=== PATIENT | female | born 1970 | race Two or more races ===

== ENCOUNTER → 2021-11-05 07:57 | Outpatient (BNVA) | payer OTHER, SELFPAY | PROVIDERS: PCP Internal Medicine; Visit Provider Internal Medicine Rheumatology | DX: Z13.89 Encounter for screening for other disorder (principal) ==

== ENCOUNTER 2021-11-06 08:27 | Outpatient (REF) | payer OTHER, SELFPAY ==
[2021-11-06 08:45] LABS: MANUAL DIFF FLAG NO
[2021-11-06 09:42] LABS: Basophils Percent Auto 0.7 % (0-2); Eosinophils Absolute Auto 0.1 X10*3/uL (0.0-0.4); Eosinophils Percent Auto 3.1 % (0-4); Hemoglobin 12.1 g/dl (12.0-16.0); Imm Gran Abs Auto 0.01 X10*3/uL (0.00-0.03); Imm Gran Pct Auto 0.2 % (0.0-0.4); Lymphocytes Absolute Auto 1.2 X10*3/uL (1.2-4.9); Lymphocytes Percent Auto 27.1 % (20-40); Mean Corpuscular HGB Conc 31.8 g/dl (31.0-35.0); Mean Corpuscular Hemoglobin 29.2 pg (27.0-33.0); Mean Corpuscular Volume 91.6 fL (80.0-98.0); Mean Platelet Volume 10.7 fL (9.4-12.3); Monocytes Absolute Auto 0.4 X10*3/uL (0.1-1.2); Monocytes Percent Auto 8.1 % (2-11); Neutrophils Absolute Auto 2.8 x10*3/uL (2.0-8.3); Neutrophils Percent Auto 60.8 % (45-73); Platelet Count 348 X10*3/uL (160-400); Red Blood Count 4.15 X10*6/uL (4.20-5.50); Red Cell Distribution Width 14.6 % (11.0-16.0); White Blood Count 4.6 X10*3/uL (4.8-10.8)
[2021-11-06 10:19] LABS: Alanine Aminotransferase 29 U/L (0-31); Aspartate Amino Transferase 19 U/L (5-31); C Reactive Protein 1.21 mg/dL (< or = 0.50); Estimated Glomerular Filt Rate > 60
[2021-11-06 10:36] LABS: Erythrocyte Sedimentation Rate 49 MM/HR (0-20)
[2021-11-10 14:17] LABS: Vitamin D 25-OH, D2 28 ng/mL; Vitamin D 25-OH, D3 5 ng/mL; Vitamin D 25-OH, Total 33 ng/mL (30-100)
== END 2021-11-06 08:28 | disposition home or self-care (01) ==
LOC: HO.LAB 08:27
PROVIDERS: PCP Internal Medicine; Visit Provider Internal Medicine Rheumatology
DX: E55.9 Vitamin D deficiency, unspecified (principal); M05.9 Rheumatoid arthritis with rheumatoid factor, unspecified; Z79.899 Other long term (current) drug therapy
CPT/HCPCS: 36415; 82306; 82565; 84450; 84460; 85025; 85652; 86140

== ENCOUNTER 2022-01-05 09:14 | Outpatient (REF) | payer OTHER, SELFPAY ==
[2022-01-05 09:43] LABS: MANUAL DIFF FLAG NO
[2022-01-05 09:50] LABS: Basophils Percent Auto 0.1 % (0-2); Eosinophils Absolute Auto 0.1 X10*3/uL (0.0-0.4); Eosinophils Percent Auto 1.1 % (0-4); Hemoglobin 12.4 g/dl (12.0-16.0); Imm Gran Abs Auto 0.03 X10*3/uL (0.00-0.03); Imm Gran Pct Auto 0.4 % (0.0-0.4); Lymphocytes Absolute Auto 1.4 X10*3/uL (1.2-4.9); Lymphocytes Percent Auto 17.2 % (20-40); Mean Corpuscular HGB Conc 32.6 g/dl (31.0-35.0); Mean Corpuscular Hemoglobin 29.2 pg (27.0-33.0); Mean Corpuscular Volume 89.4 fL (80.0-98.0); Mean Platelet Volume 10.1 fL (9.4-12.3); Monocytes Absolute Auto 0.3 X10*3/uL (0.1-1.2); Monocytes Percent Auto 4.1 % (2-11); Neutrophils Absolute Auto 6.3 x10*3/uL (2.0-8.3); Neutrophils Percent Auto 77.1 % (45-73); Platelet Count 273 X10*3/uL (160-400); Red Blood Count 4.25 X10*6/uL (4.20-5.50); Red Cell Distribution Width 13.5 % (11.0-16.0); White Blood Count 8.1 X10*3/uL (4.8-10.8)
[2022-01-05 10:15] LABS: Alanine Aminotransferase 21 U/L (0-31); Aspartate Amino Transferase 14 U/L (5-31); C Reactive Protein 2.22 mg/dL (< or = 0.50); Estimated Glomerular Filt Rate > 60
[2022-01-05 10:29] LABS: Erythrocyte Sedimentation Rate 50 MM/HR (0-20)
== END 2022-01-05 09:15 | disposition home or self-care (01) ==
LOC: HO.LAB 09:14
PROVIDERS: PCP Internal Medicine; Visit Provider Internal Medicine Rheumatology
DX: M05.9 Rheumatoid arthritis with rheumatoid factor, unspecified (principal); Z79.899 Other long term (current) drug therapy
CPT/HCPCS: 36415; 82565; 84450; 84460; 85025; 85652; 86140

== ENCOUNTER 2022-06-05 08:57 | Outpatient (REF) | payer OTHER, SELFPAY ==
[2022-06-05 09:07] LABS: MANUAL DIFF FLAG NO
[2022-06-05 09:29] LABS: Basophils Percent Auto 0.4 % (0-2); Eosinophils Absolute Auto 0.1 X10*3/uL (0.0-0.4); Eosinophils Percent Auto 1.6 % (0-4); Hematocrit 41.1 % (37.0-47.0); Hemoglobin 13.2 g/dl (12.0-16.0); Imm Gran Abs Auto 0.03 X10*3/uL (0.00-0.03); Imm Gran Pct Auto 0.4 % (0.0-0.4); Lymphocytes Absolute Auto 1.4 X10*3/uL (1.2-4.9); Lymphocytes Percent Auto 17.2 % (20-40); Mean Corpuscular HGB Conc 32.1 g/dl (31.0-35.0); Mean Corpuscular Hemoglobin 29.4 pg (27.0-33.0); Mean Corpuscular Volume 91.5 fL (80.0-98.0); Mean Platelet Volume 10.9 fL (9.4-12.3); Monocytes Absolute Auto 0.5 X10*3/uL (0.1-1.2); Monocytes Percent Auto 5.9 % (2-11); Neutrophils Absolute Auto 5.9 x10*3/uL (2.0-8.3); Neutrophils Percent Auto 74.5 % (45-73); Platelet Count 267 X10*3/uL (160-400); Red Blood Count 4.49 X10*6/uL (4.20-5.50); Red Cell Distribution Width 14.1 % (11.0-16.0)
[2022-06-05 10:04] LABS: Alanine Aminotransferase 23 U/L (0-31); Aspartate Amino Transferase 17 U/L (5-31); C Reactive Protein 2.96 mg/dL (< or = 0.50); Estimated Glomerular Filt Rate > 60
[2022-06-05 10:05] LABS: Erythrocyte Sedimentation Rate 51 MM/HR (0-20)
== END 2022-06-05 08:58 | disposition home or self-care (01) ==
LOC: HO.LAB 08:57
PROVIDERS: PCP Internal Medicine; Visit Provider Internal Medicine Rheumatology
DX: M05.9 Rheumatoid arthritis with rheumatoid factor, unspecified (principal); Z79.899 Other long term (current) drug therapy
CPT/HCPCS: 36415; 82565; 84450; 84460; 85025; 85652; 86140

== ENCOUNTER → 2022-06-24 08:46 | Outpatient (BNVA) | payer OTHER, SELFPAY | PROVIDERS: PCP Internal Medicine; Visit Provider Internal Medicine Rheumatology | DX: M05.9 Rheumatoid arthritis with rheumatoid factor, unspecified (principal); Z79.899 Other long term (current) drug therapy ==

== ENCOUNTER 2022-08-26 15:50 | Outpatient (REF) | payer OTHER, SELFPAY ==
[2022-08-26 16:07] LABS: MANUAL DIFF FLAG NO
[2022-08-26 17:24] LABS: Basophils Percent Auto 0.2 % (0-2); Eosinophils Absolute Auto 0.1 X10*3/uL (0.0-0.4); Eosinophils Percent Auto 1.4 % (0-4); Hematocrit 39.4 % (37.0-47.0); Hemoglobin 13.1 g/dl (12.0-16.0); Imm Gran Abs Auto 0.01 X10*3/uL (0.00-0.03); Imm Gran Pct Auto 0.2 % (0.0-0.4); Lymphocytes Absolute Auto 1.8 X10*3/uL (1.2-4.9); Lymphocytes Percent Auto 42.4 % (20-40); Mean Corpuscular HGB Conc 33.2 g/dl (31.0-35.0); Mean Corpuscular Hemoglobin 29.8 pg (27.0-33.0); Mean Corpuscular Volume 89.7 fL (80.0-98.0); Monocytes Absolute Auto 0.5 X10*3/uL (0.1-1.2); Monocytes Percent Auto 11.3 % (2-11); Neutrophils Absolute Auto 1.8 x10*3/uL (2.0-8.3); Neutrophils Percent Auto 44.5 % (45-73); Platelet Count 211 X10*3/uL (160-400); Red Blood Count 4.39 X10*6/uL (4.20-5.50); Red Cell Distribution Width 14.5 % (11.0-16.0); White Blood Count 4.2 X10*3/uL (4.8-10.8)
[2022-08-26 17:57] LABS: Alanine Aminotransferase 64 U/L (0-31); Aspartate Amino Transferase 41 U/L (5-31); C Reactive Protein 0.73 mg/dL (< or = 0.50); Estimated Glomerular Filt Rate > 60
[2022-08-26 18:04] LABS: Erythrocyte Sedimentation Rate 25 MM/HR (0-20)
== END 2022-08-26 15:51 | disposition home or self-care (01) ==
LOC: HO.LAB 15:50
PROVIDERS: PCP Internal Medicine Rheumatology; Visit Provider Internal Medicine Rheumatology
DX: M05.9 Rheumatoid arthritis with rheumatoid factor, unspecified (principal); Z79.899 Other long term (current) drug therapy
CPT/HCPCS: 36415; 82565; 84450; 84460; 85025; 85652; 86140

== ENCOUNTER → 2022-08-27 11:26 | Outpatient (BNVA) | payer OTHER, SELFPAY | PROVIDERS: PCP Internal Medicine; Visit Provider Internal Medicine Rheumatology | DX: Z13.89 Encounter for screening for other disorder (principal) ==

== ENCOUNTER 2022-09-29 12:31 | Outpatient (REF) | payer OTHER, SELFPAY ==
[2022-09-29 14:07] LABS: Alanine Aminotransferase 45 U/L (0-31); Alkaline Phosphatase 85 U/L (39-117); Aspartate Amino Transferase 28 U/L (5-31); Bilirubin Direct 0.2 mg/dL (0.0-0.5); Bilirubin Total 0.6 mg/dL (0.0-1.0); Total Protein 7.1 g/dL (6.5-8.0)
== END 2022-09-29 12:32 | disposition home or self-care (01) ==
LOC: HO.LAB 12:31
PROVIDERS: PCP Physician Assistant; Visit Provider Internal Medicine Rheumatology
DX: Z79.899 Other long term (current) drug therapy (principal)
CPT/HCPCS: 36415; 80076

== ENCOUNTER 2023-01-18 07:23 | Outpatient (REF) | payer OTHER, SELFPAY ==
[2023-01-18 07:56] LABS: MANUAL DIFF FLAG NO
[2023-01-18 08:24] LABS: Basophils Percent Auto 0.2 % (0-2); Eosinophils Absolute Auto 0.1 X10*3/uL (0.0-0.4); Eosinophils Percent Auto 2.7 % (0-4); Hematocrit 38.8 % (37.0-47.0); Hemoglobin 12.6 g/dl (12.0-16.0); Imm Gran Abs Auto 0.02 X10*3/uL (0.00-0.03); Imm Gran Pct Auto 0.4 % (0.0-0.4); Lymphocytes Absolute Auto 1.6 X10*3/uL (1.2-4.9); Lymphocytes Percent Auto 32.4 % (20-40); Mean Corpuscular HGB Conc 32.5 g/dl (31.0-35.0); Mean Corpuscular Volume 92.4 fL (80.0-98.0); Mean Platelet Volume 11.3 fL (9.4-12.3); Monocytes Absolute Auto 0.4 X10*3/uL (0.1-1.2); Monocytes Percent Auto 8.5 % (2-11); Neutrophils Absolute Auto 2.7 x10*3/uL (2.0-8.3); Neutrophils Percent Auto 55.8 % (45-73); Platelet Count 204 X10*3/uL (160-400); Red Cell Distribution Width 13.5 % (11.0-16.0); White Blood Count 4.9 X10*3/uL (4.8-10.8)
[2023-01-18 08:46] LABS: Alanine Aminotransferase 47 U/L (0-31); Aspartate Amino Transferase 24 U/L (5-31); C Reactive Protein 0.53 mg/dL (< or = 0.50); Estimated Glomerular Filt Rate > 60
[2023-01-18 09:10] LABS: Erythrocyte Sedimentation Rate 28 MM/HR (0-20)
== END 2023-01-18 07:24 | disposition home or self-care (01) ==
LOC: HO.LAB 07:23
PROVIDERS: PCP Physician Assistant; Visit Provider Internal Medicine Rheumatology
DX: R74.01 Elevation of levels of liver transaminase levels (principal); M54.50 Low back pain, unspecified; M05.9 Rheumatoid arthritis with rheumatoid factor, unspecified; Z79.899 Other long term (current) drug therapy
CPT/HCPCS: 36415; 82565; 84450; 84460; 85025; 85652; 86140

== ENCOUNTER 2023-01-18 08:03 | Outpatient (AMB) | payer OTHER, SELFPAY ==
--- NOTE | 2023-01-18 08:04 | A.OFFVIS_ITS ---
Intake Vital Signs 01/18/23 08:07 Height 5 ft 6 in Weight 216 lb 0.848 oz BMI 34.9 BP 126/88 Blood Pressure Location Lt brachial Position Sitting Pulse 77 Pulse Source Pulse Oximeter Temp 97.7 F Temp Source Skin Pulse Oximetry (%) 99 Oxygen Delivery Method Room Air Intake Visit Reasons: Rheumatoid Arthritis Intake Note: Here for RA follow up and test results. Labs done today. Development Technical Lead Required: No Allergies No Known Allergies Allergy (Unverified 01/18/23 08:04) HPI HPI Comments History of Present Illness Details The patient returns today for evaluation of her rheumatoid arthritis. In general the joints are feeling much better now that she is regularly receiving the Humira 40 mg every 2 weeks and taking the methotrexate 20 mg weekly. She also is on folic acid 1 mg daily and takes occasional ibuprofen. The use of the ibuprofen has been minimal recently although she developed some back pain last week. She has been trying to lose weight through dietary restriction and that has been helpful. She has also been walking at least 3 times a week. After for a long walk sometimes she gets a back ache so she takes the ibuprofen. Back pains do not seem to radiate anywhere. She has no numbness, weakness or tingling in the legs. She is back on regularly using the CPAP device as well. FORMERLY [facility], [facility]–1983 Medical History History of COVID-19 Hypertension Long-term use of immunosuppressant medication Malignant neoplasm cervix Obstructive sleep apnea Seropositive rheumatoid arthritis Thyroid nodule Vitamin D deficiency Surgical History History of laparoscopic appendectomy Family History Mother Rheumatoid arthritis Social History Household Members: Significant Other Housing: House Are you a primary landcare officer to a significant other at home: No Do you presently have visiting nurse or other home services: No 75 years or older and lives alone: No Alcohol intake: current Alcohol intake frequency: holidays/special occasions only Alcohol type: wine Patient Tobacco Use Status: Never used Tobacco e-Cigarette/Vaping Use: Never Used service: No Current occupational status: employed 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 Negative for appetite change, fever, chills, malaise and fatigue Eyes Details: Negative for vision change, dry eyes,headaches and dizziness ENT Details: Negative for hearing change, tinnitus, oral ulcer, nose bleeds and oral dryness. Card Details: Negative chest pain, edema and syncope Resp Details: Negative for SOB, cough and wheezing GI Details: Negative indigestion/heartburn, nausea, abdominal pain, bowel changes, diarrhea, constipation and bloody stool. Skin/Breast Details: Negative for itching, rash, hives, Raynaud's symptoms, sun sensitivity, and skin cancer Neuro Details: Negative for epilepsy, palsy, stroke, changes in speech, tingling and weakness Chandler/Lymph Details: Negative for excessive bruising or bleeding. Physical Exam Vital Signs: Last Vital Signs Temp 97.7 F 01/18/23 08:07 Pulse 77 01/18/23 08:07 BP 126/88 01/18/23 08:07 Pulse Ox 99 01/18/23 08:07 Oxygen Delivery Method Room Air 01/18/23 08:07 BMI result Body Mass Index 34.9 APPEARANCE: Patient in no acute distress EYES no redness, pupils equal and reactive to light, eyelids normal EXTREMITIES: No edema, no calf tenderness, normal peripheral pulses. NEURO: Oriented and alert x3. No focal weakness. Reflexes symmetric. Gait normal. JOINT EXAM: ?? Cervical Spine:.? Full range of motion without pain; no tenderness. Thoracic Spine:.? No scoliosis.? No tenderness on palpation. Lumbar Spine:.? Alignment normal.? Full range of motion with slight pain at the extremes. No tenderness. Chest Wall:.? No tenderness, swelling, increased warmth or erythema. Hands:? Right:? There is mild swelling of the 1st 3 MCP joints; these joints today are not tender.? There is slight thickening?at the 2nd and 3rd PIP joints but they are not tender today.? There is no thenar atrophy, triggering or sensory loss.? Left:? There is mild, nontender swelling of the 2nd and 3rd MCP joints.? There is no swelling or tenderness of the PIP joints.? There is no flexor tendon triggering, thenar atrophy or sensory loss. Wrists:.? Right:? No discomfort with flexion or extension at 60 degrees. No tenderness or swelling.? Left:? No discomfort with flexion or extension at 75 degrees.? There is no swelling or tenderness. No redness or warmth. Elbows:? Right:?? This is a 1 cm in diameter, non fluctuant nodule over the olecranon which has the consistency of a rheumatoid nodule.? Otherwise the joint has pain-free range of motion without tenderness or swelling.? Left:? Normal pain-free range of motion without tenderness, swelling, increased warmth or erythema.? There is however some nodularity to the olecranon bursa, also consistent with some rheumatoid nodules.? No fluctuance or tenderness.? No redness or warmth. Shoulders:.?? Full range of motion without pain. No tenderness, weakness, swelling, increased warmth or erythema. Hips:.? Full range of motion without pain. Hip bursa:.? No tenderness. Knees:.?? Normal pain-free range of motion without tenderness, swelling, increa sed warmth or erythema.? There is no effusion or crepitation Ankles:? Right:? Normal pain-free range of motion with no tenderness, swelling, increased warmth or erythema.? Left:? Normal pain-free range of motion without tenderness or swelling. Feet:.? Right:? There is mild tenderness at the 1st MTP joint and maybe some swelling.? Elsewhere no tenderness or swelling.? Left:? Slight tenderness at the 1st MTP without swelling, redness or warmth.? Other joints have normal pain-free range of motion without tenderness, swelling, increased warmth or erythema. ? Results Reviewed Results Reviewed: Laboratory Tests 08/26/22 08/26/22 08/26/22 16:05 16:05 16:05 WBC 4.2 L Hgb 13.1 ESR 25 H AST 41 H ALT 64 H C-Reactive Protein 0.73 H 09/29/22 12:38 WBC Hgb ESR AST 28 ALT 45 H C-Reactive Protein Assessment & Plan Assessment & Plan (1) Long-term use of immunosuppressant medication: Code(s): Z79.899 - Other jail (current) drug therapy (2) Elevated transaminase level: Code(s): R74.01 - Elevation of levels of liver transaminase levels (3) Low back pain: Code(s): M54.50 - Low back pain, unspecified (4) Seropositive rheumatoid arthritis: Comment: Onset 03/18: RF, TRINO positive, anti DNA negative. Methotrexate started 08/17; Enbrel added late October Enbrel loosing effectiveness; Humira started Code(s): M05.9 - Rheumatoid arthritis with rheumatoid factor, unspecified Plan Rheumatoid arthritis with improvement in control of her symptoms with more regular use of the Humira. Recently, she has not had the great difficulty obtaining it regularly from her supplier. She had some elevation of transaminases back in August. Those improved in September so we await today's lab work. Hopefully with the reduction in weight she will have avoided the fatty liver situation with her liver. The back pain seems mechanical in etiology. We will set up some physical therapy time for that. She will continue as above unless we need to change the methotrexate dose because of her LFTs. A follow-up is recommended for 4 months but lab work will be needed probably in another 2 months. Orders: Orders PT Evaluation and Treatment Today M54.50 - Low back pain, unspecified Coding Level of Care Code Est Pt Level 3 (21278) Diagnoses Long-term use of immunosuppressant medication Z79.899 Elevated transaminase level R74.01 Low back pain M54.50 Seropositive rheumatoid arthritis M05.9
[2023-01-18 08:07] VITALS: BP 126/88; PULSE 77; TEMP 36.5; O2SAT 99; BMI 34.9
== END 2023-01-18 08:31 | disposition home or self-care (01) ==
PROVIDERS: PCP Physician Assistant; Visit Provider Internal Medicine Rheumatology
DX: M05.89 Other rheumatoid arthritis with rheumatoid factor of multiple sites (principal); Z79.899 Other long term (current) drug therapy; R74.01 Elevation of levels of liver transaminase levels; M54.50 Low back pain, unspecified
CPT/HCPCS: 99213

== ENCOUNTER 2023-02-10 08:04 | Outpatient (REF) | payer OTHER, SELFPAY ==
--- NOTE | ~2023-02-10 | XR_ITS ---
EXAMINATION: XR LUMBOSACRAL SPINE CLINICAL INFORMATION: Low back pain. COMPARISON: None available. TECHNIQUE: Three views of the lumbosacral spine. 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 There is normal lumbar lordosis. The vertebral heights and alignment is normal. There is loss of L5-L6 and L6-S1 disc heights. Rest of the disc heights are normal. No visible acute fracture, dislocation or subluxation seen. The SI joints are symmetrical and normal. The paravertebral soft tissues are normal. XR/XR lumbar spine 2-3V IMPRESSION: Mild degenerative disc changes L5-L6 and L6-S1 disc levels. No visible acute fracture, dislocation or subluxation seen.
== END 2023-02-10 08:05 | disposition home or self-care (01) ==
LOC: HO.XRAY 08:04
PROVIDERS: PCP Physician Assistant; Visit Provider Internal Medicine Rheumatology
DX: M54.50 Low back pain, unspecified (principal); Z79.899 Other long term (current) drug therapy
CPT/HCPCS: 72100

== ENCOUNTER 2023-05-25 08:55 | Outpatient (REF) | payer OTHER, SELFPAY ==
[2023-05-25 09:08] LABS: MANUAL DIFF FLAG NO
[2023-05-25 10:01] LABS: Basophils Percent Auto 0.6 % (0-2); Eosinophils Absolute Auto 0.2 X10*3/uL (0.0-0.4); Eosinophils Percent Auto 4.3 % (0-4); Hematocrit 39.9 % (37.0-47.0); Hemoglobin 12.9 g/dl (12.0-16.0); Imm Gran Abs Auto 0.01 X10*3/uL (0.00-0.03); Imm Gran Pct Auto 0.2 % (0.0-0.4); Lymphocytes Absolute Auto 1.9 X10*3/uL (1.2-4.9); Lymphocytes Percent Auto 36.9 % (20-40); Mean Corpuscular HGB Conc 32.3 g/dl (31.0-35.0); Mean Corpuscular Hemoglobin 29.3 pg (27.0-33.0); Mean Corpuscular Volume 90.5 fL (80.0-98.0); Mean Platelet Volume 10.7 fL (9.4-12.3); Monocytes Absolute Auto 0.5 X10*3/uL (0.1-1.2); Monocytes Percent Auto 9.4 % (2-11); Neutrophils Absolute Auto 2.5 x10*3/uL (2.0-8.3); Neutrophils Percent Auto 48.6 % (45-73); Platelet Count 224 X10*3/uL (160-400); Red Blood Count 4.41 X10*6/uL (4.20-5.50); White Blood Count 5.1 X10*3/uL (4.8-10.8)
[2023-05-25 10:28] LABS: Alanine Aminotransferase 40 U/L (0-31); Albumin Level 3.8 g/dL (3.5-5.0); Alkaline Phosphatase 92 U/L (39-117); Aspartate Amino Transferase 27 U/L (5-31); Bilirubin Direct 0.1 mg/dL (0.0-0.5); Bilirubin Total 0.5 mg/dL (0.0-1.0); C Reactive Protein 0.34 mg/dL (< or = 0.50); Estimated Glomerular Filt Rate > 60; Total Protein 7.7 g/dL (6.5-8.0)
[2023-05-25 10:39] LABS: Erythrocyte Sedimentation Rate 38 MM/HR (0-20)
== END 2023-05-25 08:56 | disposition home or self-care (01) ==
LOC: HO.LAB 08:55
PROVIDERS: PCP Physician Assistant; Visit Provider Internal Medicine Rheumatology
DX: M05.9 Rheumatoid arthritis with rheumatoid factor, unspecified (principal); R74.01 Elevation of levels of liver transaminase levels; Z79.899 Other long term (current) drug therapy
CPT/HCPCS: 36415; 80076; 82565; 85025; 85652; 86140

== ENCOUNTER 2023-08-09 10:16 | Outpatient (AMB) | payer OTHER, SELFPAY ==
--- NOTE | 2023-08-09 10:25 | MHC.OFFVIS ---
Intake Vital Signs 08/09/23 10:31 Height 5 ft 6 in Weight 215 lb 6.266 oz BMI 34.8 BP 114/84 Blood Pressure Location Rt brachial Position Sitting Pulse 80 Pulse Source Pulse Oximeter Temp 97.7 F Temp Source Skin Pulse Oximetry (%) 97 Oxygen Delivery Method Room Air Intake Visit Reasons: Elevated transaminase level Intake Note: Patient last seen 01/18/[address] Whipple, presents today for test results. Manager Metrology Required: No Accompanied by: Self / Same As Patient Allergies No Known Allergies Allergy (Unverified 08/09/23 10:25) Medication List - Last Reconciled 08/11/23 by Ana Goodman, MANAGER RESIDENTIAL- adalimumab (Humira(CF) Pen) 40 mg (0.4 mL) subcut Q2W 84 days albuterol sulfate 90 mcg/actuation 2 inhalations inhalation Q6H PRN amlodipine 5 mg PO DAILY ergocalciferol (vitamin D2) 1,250 mcg PO QWEEK fesoterodine ER 8 mg PO DAILY fluticasone propionate 110 mcg/actuation (Flovent HFA) 2 puffs inhalation BID folic acid 1 mg PO DAILY ibuprofen 600 mg PO Q8H PRN methotrexate sodium 15 mg PO QWEEK omeprazole 20 mg PO DAILY HPI HPI Comments History of Present Illness Details Mr. Bush 53-year-old female returns today for follow of her rheumatoid arthritis. In general the joints are feeling much better now that she is regularly receiving the Humira 40 mg every 2 weeks and taking the methotrexate 15 mg weekly. She also is on folic acid 1 mg daily and takes occasional ibuprofen. She also takes vitamin-D supplements. She has been trying to lose weight through dietary restriction and that has been helpful. She has also been walking at least 3 times a week. After for a long walk sometimes she gets a back ache so she takes the ibuprofen. Back pains do not seem to radiate anywhere. She has no numbness, weakness or tingling in the legs. She is back on regularly using the CPAP device as well. The patient describes some hand weakness that she is increasingly dropping things. She was recently diagnosed with hypertension. The patient shares that she has been diagnosed with multiple kidney stones to both kidneys. She has also had laser lithotripsy to the left kidney 3 months ago and will be having the right kidney done soon. She has also had an ear infection about late May early June and she held her Humira while she was on antibiotics [facility] Medical History (Updated 08/11/23 @ 21:22 by SHEILA Larios) Hypertension Fatigue Vitamin D deficiency Long-term use of immunosuppressant medication History of COVID-19 Hypertension Thyroid nodule Malignant neoplasm cervix Obstructive sleep apnea Seropositive rheumatoid arthritis Surgical History History of laparoscopic appendectomy Family History Mother Rheumatoid arthritis Social History Household Members: Significant Other Housing: House Are you a primary manager care to a significant other at home: No Do you presently have visiting nurse or other home services: No Alcohol intake: current Alcohol intake frequency: holidays/special occasions only Alcohol type: wine Patient Tobacco Use Status: Never used Tobacco e-Cigarette/Vaping Use: Never Used service: No Current occupational status: employed 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 Vital Signs: Last Vital Signs Temp 97.7 F 08/09/23 10:31 Pulse 80 08/09/23 10:31 BP 114/84 08/09/23 10:31 Pulse Ox 97 08/09/23 10:31 Oxygen Delivery Method Room Air 08/09/23 10:31 BMI result Body Mass Index 34.8 Results Reviewed Results Reviewed: Laboratory Tests 08/26/22 08/26/22 08/26/22 16:05 16:05 16:05 WBC 4.2 L Hgb 13.1 ESR 25 H AST 41 H ALT 64 H C-Reactive Protein 0.73 H 09/29/22 12:38 WBC Hgb ESR AST 28 ALT 45 H C-Reactive Protein Laboratory Tests 01/18/23 07:55 WBC 4.9 ESR 28 H Creatinine 0.65 Estimated GFR > 60 ALT 47 H C-Reactive Protein 0.53 H Laboratory Tests 05/25/23 09:07 WBC 5.1 RBC 4.41 Hgb 12.9 Hct 39.9 ESR 38 H Creatinine 0.64 Estimated GFR > 60 AST 27 ALT 40 H Assessment & Plan Assessment & Plan (1) Long-term use of immunosuppressant medication: Code(s): Z79.899 - Other long-term (current) drug therapy (2) Elevated transaminase level: Code(s): R74.01 - Elevation of levels of liver transaminase levels (3) Low back pain: Code(s): M54.50 - Low back pain, unspecified Qualifiers: Chronicity: chronic Back pain laterality: bilateral Sciatica presence: with sciatica Sciatica laterality: sciatica of right side Qualified Code(s): M54.41 - Lumbago with sciatica, right side; G89.29 - Other chronic pain (4) Seropositive rheumatoid arthritis: Comment: Onset 03/18: RF, TRINO positive, anti DNA negative. Methotrexate started 08/17; Enbrel added late October Enbrel loosing effectiveness stopped 2021; Humira started 2022 Code(s): M05.9 - Rheumatoid arthritis with rheumatoid factor, unspecified (5) Hypertension: Comment: new onset early 2023 Code(s): I10 - Essential (primary) hypertension Qualifiers: Hypertension type: primary hypertension Qualified Code(s): I10 - Essential (primary) hypertension Plan #Rheumatoid arthritis with improvement in control of her symptoms with more regular use of the Humira. She continues with elevation of transaminases even with the reduction of MTX from 8 to 6 pills. Hopefully she will continue to have reduction in weight to mitigate the fatty liver situation with her liver. We will continue with the current regimen. #Low back Pain:The back pain seems mechanical in etiology. We will set up some physical therapy time for that. She will continue as above unless we need to change the methotrexate dose because of her LFTs. A follow-up is recommended for 4 months but lab work will be needed probably in another 2 months. #Prison Use Of MTX: If the ALT increases more on next lab check I will consider a further reduction in MTX. The patient denies ROS on the reduction so will will monitor for ROS with any further reduction. The patient knows to hold Humira for fevers, infections, surgeries, and nonhealing wounds. We will obtain labs 1 week before the next visit. #HTN: Newly Diagnosed. Will continue to monitor Ibuprofen use. Follow-up in 3 months I spent 40 minutes reviewing history, evaluating patient, and documenting. Orders: Orders Complete Blood Count Auto Diff 08/09/23 E55.9 - Vitamin D deficiency, unspecified, M05.9 - Rheumatoid arthritis with rheumatoid factor, unspecified, R53.83 - Other fatigue, R74.01 - Elevation of levels of liver transaminase levels, Z79.899 - Other buttermaker helper (current) drug therapy Comprehensive Met. Panel 08/09/23 E55.9 - Vitamin D deficiency, unspecified, M05.9 - Rheumatoid arthritis with rheumatoid factor, unspecified, R53.83 - Other fatigue, R74.01 - Elevation of levels of liver transaminase levels, Z79.899 - Other long-term (current) drug therapy C Reactive Protein 08/09/23 E55.9 - Vitamin D deficiency, unspecified, M05.9 - Rheumatoid arthritis with rheumatoid factor, unspecified, R53.83 - Other fatigue, R74.01 - Elevation of levels of liver transaminase levels, Z79.899 - Other long-term (current) drug therapy Uric Acid 08/09/23 E55.9 - Vitamin D deficiency, unspecified, M05.9 - Rheumatoid arthritis with rheumatoid factor, unspecified, R53.83 - Other fatigue, R74.01 - Elevation of levels of liver transaminase levels, Z79.899 - Other long-term (current) drug therapy Comprehensive Met. Panel 4 Months M05.9 - Rheumatoid arthritis with rheumatoid factor, unspecified, Z79.899 - Other long-term (current) drug therapy C Reactive Protein 4 Months M05.9 - Rheumatoid arthritis with rheumatoid factor, unspecified, Z79.899 - Other long-term (current) drug therapy Erythrocyte Sedimentation Rate 08/09/23 E55.9 - Vitamin D deficiency, unspecified, M05.9 - Rheumatoid arthritis with rheumatoid factor, unspecified, R53.83 - Other fatigue, R74.01 - Elevation of levels of liver transaminase levels, Z79.899 - Other long-term (current) drug therapy Vitamin D 1,25 dihydroxy 08/09/23 E55.9 - Vitamin D deficiency, unspecified, M05.9 - Rheumatoid arthritis with rheumatoid factor, unspecified, R53.83 - Other fatigue, R74.01 - Elevation of levels of liver transaminase levels, Z79.899 - Other long-term (current) drug therapy Thyroid Stimulating Hormone 08/09/23 E55.9 - Vitamin D deficiency, unspecified, M05.9 - Rheumatoid arthritis with rheumatoid factor, unspecified, R53.83 - Other fatigue, R74.01 - Elevation of levels of liver transaminase levels, Z79.899 - Other buttermaker helper (current) drug therapy Complete Blood Count Auto Diff 4 Months M05.9 - Rheumatoid arthritis with rheumatoid factor, unspecified, Z79.899 - Other long-term (current) drug therapy Erythrocyte Sedimentation Rate 4 Months M05.9 - Rheumatoid arthritis with rheumatoid factor, unspecified, Z79.899 - Other buttermaker helper (current) drug therapy Medications: Changed From methotrexate sodium 20 mg (8 x 2.5 mg) PO QWEEK 103 tabs 0RF M05.9 - Rheumatoid arthritis with rheumatoid factor, unspecified To methotrexate sodium 15 mg PO QWEEK M05.9 - Rheumatoid arthritis with rheumatoid factor, unspecified Coding Level of Care Code Est Pt Level 4 (37914) Diagnoses Long-term use of immunosuppressant medication Z79.899 Elevated transaminase level R74.01 Chronic bilateral low back pain with right-sided sciatica M54.41; G89.29 Chronicity: chronic Back pain laterality: bilateral Sciatica presence: with sciatica Sciatica laterality: sciatica of right side Seropositive rheumatoid arthritis M05.9 Primary hypertension I10 Hypertension type: primary hypertension
[2023-08-09 10:31] VITALS: BP 114/84; PULSE 80; TEMP 36.5; O2SAT 97; BMI 34.8
== END 2023-08-09 11:36 | disposition home or self-care (01) ==
PROVIDERS: PCP Physician Assistant; Visit Provider Nurse Practitioner Family
DX: R74.01 Elevation of levels of liver transaminase levels (principal); M05.79 Rheumatoid arthritis with rheumatoid factor of multiple sites without organ or systems involvement; Z79.899 Other long term (current) drug therapy; M54.41 Lumbago with sciatica, right side; G89.29 Other chronic pain; I10 Essential (primary) hypertension
CPT/HCPCS: 99214

== ENCOUNTER → 2023-08-09 10:16 | Outpatient (BNVA) | payer OTHER, SELFPAY | PROVIDERS: PCP Physician Assistant; Visit Provider Nurse Practitioner Family ==

== ENCOUNTER 2023-08-09 11:28 | Outpatient (REF) | payer OTHER, SELFPAY ==
[2023-08-09 13:15] LABS: MANUAL DIFF FLAG NO
[2023-08-09 13:44] LABS: Basophils Percent Auto 0.6 % (0-2); Eosinophils Absolute Auto 0.1 X10*3/uL (0.0-0.4); Eosinophils Percent Auto 2.7 % (0-4); Hematocrit 39.9 % (37.0-47.0); Hemoglobin 13.1 g/dl (12.0-16.0); Imm Gran Abs Auto 0.01 X10*3/uL (0.00-0.03); Imm Gran Pct Auto 0.2 % (0.0-0.4); Lymphocytes Percent Auto 40.2 % (20-40); Mean Corpuscular HGB Conc 32.8 g/dl (31.0-35.0); Mean Corpuscular Hemoglobin 28.6 pg (27.0-33.0); Mean Corpuscular Volume 87.1 fL (80.0-98.0); Mean Platelet Volume 10.9 fL (9.4-12.3); Monocytes Absolute Auto 0.4 X10*3/uL (0.1-1.2); Monocytes Percent Auto 7.6 % (2-11); Neutrophils Absolute Auto 2.4 x10*3/uL (2.0-8.3); Neutrophils Percent Auto 48.7 % (45-73); Platelet Count 259 X10*3/uL (160-400); Red Blood Count 4.58 X10*6/uL (4.20-5.50); Red Cell Distribution Width 13.5 % (11.0-16.0); White Blood Count 4.9 X10*3/uL (4.8-10.8)
[2023-08-09 13:59] LABS: Alanine Aminotransferase 26 U/L (0-31); Alkaline Phosphatase 97 U/L (39-117); Anion Gap 10 (12-20); Aspartate Amino Transferase 20 U/L (5-31); Bilirubin Total 0.6 mg/dL (0.0-1.0); Blood Urea Nitrogen 18 mg/dL (9-16); Calcium 9.5 mg/dL (8.4-10.2); Carbon Dioxide 28 mmol/L (22-29); Chloride 106 mmol/L (96-108); Estimated Glomerular Filt Rate > 60; Glucose Random 93 mg/dL (60-115); Potassium 3.6 mmol/L (3.3-5.1); Sodium 140 mmol/L (135-145); Total Protein 8.1 g/dL (6.5-8.0); Uric Acid 5.3 mg/dL (2.4-5.7)
[2023-08-09 14:14] LABS: Thyroid Stimulating Hormone 0.63 uIU/mL (0.32-4.0)
[2023-08-09 14:36] LABS: Erythrocyte Sedimentation Rate 39 MM/HR (0-20)
[2023-08-13 12:08] LABS: VITAMIN D (1,25 OH) D3 18 pg/mL; Vit D (1,25-Dihydroxy) Total 67 pg/mL (18-72); Vitamin D (1,25 OH) D2 49 pg/mL
== END 2023-08-09 11:29 | disposition home or self-care (01) ==
LOC: HO.10HDL 11:28
PROVIDERS: Visit Provider Nurse Practitioner Family
DX: M05.9 Rheumatoid arthritis with rheumatoid factor, unspecified (principal); R74.01 Elevation of levels of liver transaminase levels; E55.9 Vitamin D deficiency, unspecified; R53.83 Other fatigue; Z79.899 Other long term (current) drug therapy
CPT/HCPCS: 36415; 80053; 82652; 84443; 84550; 85025; 85652; 86140

== ENCOUNTER 2024-06-06 08:58 | Outpatient (AMB) | payer OTHER, SELFPAY ==
--- NOTE | 2024-06-06 08:59 | A.OFFVIS_ITS ---
Vital Signs 06/06/24 09:00 Height 5 ft 6 in Weight 222 lb 14.197 oz BMI 36.0 BP 116/82 Blood Pressure Location Rt brachial Position Sitting Pulse 73 Pulse Source Pulse Oximeter Intake Visit Reasons: Elevated transaminase level Intake Note: Patient last seen by Ana Goodman on 08/09/23. Presents today for Elevated Transaminase follow up and test results. Field Consultant Required: No Accompanied by: Self / Same As Patient Allergies No Known Allergies Allergy (Unverified 06/06/24 09:04) Medication List - Last Reconciled 06/06/24 by Chica March MD adalimumab (Humira(CF) Pen) 40 mg (0.4 mL) subcut Q2W 84 days albuterol sulfate 90 mcg/actuation 2 inhalations inhalation Q6H PRN amlodipine 5 mg PO DAILY ergocalciferol (vitamin D2) 1,250 mcg PO QWEEK fesoterodine ER 8 mg PO DAILY fluticasone propionate 110 mcg/actuation (Flovent HFA) 2 puffs inhalation BID folic acid 1 mg PO DAILY ibuprofen 600 mg PO Q8H PRN methotrexate sodium 15 mg (6 x 2.5 mg) PO QWEEK omeprazole 20 mg PO DAILY HPI Comments Details: This is a 54-year-old female with seropositive RA who presents for follow-up. She was last seen 08/2023. He remains on Humira every other week and methotrexate 15 mg weekly. She states that she feels about the same overall. She states that she continues to have intermittent flare-ups usually involving her hands, intermittent swelling of her knuckles. She has morning stiffness of her hands that lasts 1 hour. She states that she does not take anything for pain. Has not used ibuprofen in over 1 year [facility] Medical History Hypertension Fatigue Vitamin D deficiency Long-term use of immunosuppressant medication History of COVID-19 Hypertension Thyroid nodule Malignant neoplasm cervix Obstructive sleep apnea Seropositive rheumatoid arthritis Surgical History History of laparoscopic appendectomy Family History Mother Rheumatoid arthritis Social History Household Members: Significant Other Housing: House Are you a primary urgent care technician to a significant other at home: No Do you presently have visiting nurse or other home services: No Alcohol intake: current Alcohol intake frequency: holidays/special occasions only Alcohol type: wine Patient Tobacco Use Status: Never used Tobacco e-Cigarette/Vaping Use: Never Used service: No Current occupational status: employed 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 [employer] Reports arthralgias, Reports joint swelling and Reports stiffness Physical Exam Vital Signs: Last Vital Signs Pulse 73 06/06/24 09:00 BP 116/82 06/06/24 09:00 BMI result Body Mass Index 36.0 Const General: cooperative, healthy appearing and comfortable Nutritional Appearance: obese morbidly obese Orientation/consciousness: patient oriented x3 Limitations: no limitations HEENT Head: Yes normocephalic and Yes atraumatic Mouth: moist mucous membranes Resp Effort & Inspection: normal respiratory effort and able to speak in complete sentences Auscultation: clear to auscultation bilaterally Cardio Rate: regular rate Rhythm: regular rhythm Skin General skin exam: no rashes or lesions noted Neuro General: patient oriented x3 Extrem Other: Subtle prominent ulnar styloid left hand No wrist swelling or tenderness bilaterally Mild right wrist pain with full flexion Bilateral early Z deformity of thumbs Bilateral 2nd and 3rd MCP thickening but no swelling or tenderness today Negative MTP squeeze test bilaterally Very early boutonniere and swan neck deformities of few fingers both hands Rheumatoid nodules overlying the left elbow, not tender No elbow pain with full flexion-extension bilaterally Normal range of motion of shoulders Normal nailfold capillaroscopy Negative straight leg raise test bilaterally No knee swelling, warmth or tenderness bilaterally No ankle swelling or tenderness bilaterally Assessment & Plan Assessment & Plan (1) Seropositive rheumatoid arthritis: Comment: Onset 03/18: ++ RF, ++TRINO anti DNA negative. Methotrexate started 08/17; Enbrel added late October Enbrel losing effectiveness stopped 2021; Humira started 2022 Code(s): M05.9 - Rheumatoid arthritis with rheumatoid factor, unspecified Category: Medical Plan: This is a 54-year-old female with seropositive deforming RA who presents for follow-up. She remains on methotrexate 15 mg weekly, folic acid 1 mg daily and Humira 40 mg every other week. On exam I do not see any swollen joints today. She continues to have mild symptoms of joint pain and stiffness which may be related to degenerative arthritis related to the damage and hormones that she has accrued over the years versus mild RA disease activity. Check labs Continue current meds Labs before next visit in 4 months (2) Long-term use of immunosuppressant medication: Code(s): Z79.899 - Other prison (current) drug therapy Category: Medical Plan: Monitor safety labs for methotrexate Side effects of Humira were discussed with the patient in detail including increased risk of infection, demyelinating disease, reactivation of latent TB, possible increased risk of solid and skin tumors. Patient fully aware. Advised patient to seek medical care FABRICE if patient has an infection and advised patient to stop the medication until the infection is resolved. (3) Immunization counseling: Code(s): Z71.85 - Encounter for immunization safety counseling Category: Medical Plan: Patient did not received the COVID booster this year, she received the flu vaccine. Advised patient to get the Shingrix vaccine. Hold 2 doses of methotrexate after each vaccination dose Plan I spent 45 minutes reviewing patient's chart, evaluating patient, ordering diagnostic workup, counseling patient and documenting in the chart Orders: Orders C Reactive Protein Today M05.9 - Rheumatoid arthritis with rheumatoid factor, unspecified, Z79.899 - Other prison (current) drug therapy Complete Blood Count Auto Diff Today M05.9 - Rheumatoid arthritis with rheumatoid factor, unspecified, Z79.899 - Other prison (current) drug therapy Comprehensive Met. Panel Today M05.9 - Rheumatoid arthritis with rheumatoid factor, unspecified, Z79.899 - Other filler leaf cutter long (current) drug therapy T Spot TB Today Z11.7 - Encounter for testing for latent tuberculosis infection Complete Blood Count Auto Diff Today M05.9 - Rheumatoid arthritis with rheumatoid factor, unspecified, Z79.899 - Other filler leaf cutter long (current) drug therapy Erythrocyte Sedimentation Rate Today M05.9 - Rheumatoid arthritis with rheumatoid factor, unspecified, Z79.899 - Other prison (current) drug therapy Hepatitis A,B,C Profile Today Z11.59 - Encounter for screening for other viral diseases Comprehensive Met. Panel Today M05.9 - Rheumatoid arthritis with rheumatoid factor, unspecified, Z79.899 - Other prison (current) drug therapy C Reactive Protein Today M05.9 - Rheumatoid arthritis with rheumatoid factor, unspecified, Z79.899 - Other prison (current) drug therapy Erythrocyte Sedimentation Rate Today M05.9 - Rheumatoid arthritis with rheumatoid factor, unspecified, Z79.899 - Other prison (current) drug therapy Cyclic Citrullinated Peptide Today M05.9 - Rheumatoid arthritis with rheumatoid factor, unspecified Uric Acid 4 Months M10.9 - Gout, unspecified Medications: New methotrexate sodium 15 mg (6 x 2.5 mg) PO QWEEK 96 tabs 0RF M05.9 - Rheumatoid arthritis with rheumatoid factor, unspecified Coding Level of Care Code Est Pt Level 4 (82744) Complex EM visit Add On G2211 Diagnoses Seropositive rheumatoid arthritis M05.9 Long-term use of immunosuppressant medication Z79.899 Immunization counseling Z71.85
[2024-06-06 09:00] VITALS: BP 116/82; PULSE 73; BMI 36.0
== END 2024-06-06 09:22 | disposition home or self-care (01) ==
PROVIDERS: PCP Physician Assistant; Visit Provider Student in an Organized Health Care Education/Training Program
DX: M05.79 Rheumatoid arthritis with rheumatoid factor of multiple sites without organ or systems involvement (principal); Z79.899 Other long term (current) drug therapy; Z71.85 Encounter for immunization safety counseling
CPT/HCPCS: 99215

== ENCOUNTER 2024-06-06 09:26 | Outpatient (REF) | payer OTHER, SELFPAY ==
[2024-06-06 10:51] LABS: MANUAL DIFF FLAG NO
[2024-06-06 10:59] LABS: Basophils Percent Auto 0.6 % (0-2); Eosinophils Absolute Auto 0.1 X10*3/uL (0.0-0.4); Eosinophils Percent Auto 2.8 % (0-4); Hemoglobin 12.8 g/dl (12.0-16.0); Imm Gran Abs Auto 0.01 X10*3/uL (0.00-0.03); Imm Gran Pct Auto 0.2 % (0.0-0.4); Lymphocytes Absolute Auto 1.9 X10*3/uL (1.2-4.9); Lymphocytes Percent Auto 38.8 % (20-40); Mean Corpuscular Hemoglobin 28.5 pg (27.0-33.0); Mean Corpuscular Volume 89.1 fL (80.0-98.0); Mean Platelet Volume 10.6 fL (9.4-12.3); Monocytes Absolute Auto 0.4 X10*3/uL (0.1-1.2); Monocytes Percent Auto 8.3 % (2-11); Neutrophils Absolute Auto 2.4 x10*3/uL (2.0-8.3); Neutrophils Percent Auto 49.3 % (45-73); Platelet Count 248 X10*3/uL (160-400); Red Blood Count 4.49 X10*6/uL (4.20-5.50); Red Cell Distribution Width 13.6 % (11.0-16.0); White Blood Count 4.9 X10*3/uL (4.8-10.8)
[2024-06-06 11:14] LABS: Alanine Aminotransferase 38 U/L (0-31); Albumin Level 3.9 g/dL (3.5-5.0); Alkaline Phosphatase 98 U/L (39-117); Anion Gap 11 (12-20); Aspartate Amino Transferase 28 U/L (5-31); Bilirubin Total 0.5 mg/dL (0.0-1.0); Blood Urea Nitrogen 17 mg/dL (9-16); C Reactive Protein 0.86 mg/dL (< or = 0.50); Carbon Dioxide 26 mmol/L (22-29); Chloride 108 mmol/L (96-108); Estimated Glomerular Filt Rate > 60; Glucose Random 103 mg/dL (60-115); Potassium 3.9 mmol/L (3.3-5.1); Sodium 141 mmol/L (135-145); Total Protein 7.8 g/dL (6.5-8.0)
[2024-06-06 11:28] LABS: HBS Num1 293.87 mIU/mL (0-7.99); HBc Num1 0.25 S/CO (0.00-0.79); HBsAGNum1 0.46 S/CO (0.00-0.99); Hepatitis A Antibody IgM 0.24 Index (0-0.79); Hepatitis B Core Antibody Nonreactive (Nonreactive); Hepatitis B Surface Antigen Negative (Negative); ~HepC Num1 0.15 S/CO (0.00-0.79); ~Hepatitis A Antibody IgM Nonreactive (Nonreactive); ~Hepatitis B Surface Antibody REACTIVE (Nonreactive); ~Hepatitis C Antibody Nonreactive (Nonreactive)
[2024-06-06 12:00] LABS: Erythrocyte Sedimentation Rate 33 MM/HR (0-20)
[2024-06-08 16:03] LABS: Cyclic Citrullinated Peptide >250 UNITS
[2024-06-08 18:09] LABS: TS Negative Control Passed; TS Panel A 0; TS Panel B 0; TS Positive Control Passed; TSpotTB Negative (Negative)
== END 2024-06-06 09:27 | disposition home or self-care (01) ==
LOC: HO.10HDL 09:26
PROVIDERS: Visit Provider Student in an Organized Health Care Education/Training Program
DX: Z79.899 Other long term (current) drug therapy (principal); M05.9 Rheumatoid arthritis with rheumatoid factor, unspecified; Z11.7 Encounter for testing for latent tuberculosis infection; Z11.59 Encounter for screening for other viral diseases
CPT/HCPCS: 36415; 80053; 85025; 85652; 86140; 86200; 86481; 86704; 86706; 86709; 86803; 87340

== ENCOUNTER 2024-10-10 08:31 | Outpatient (REF) | payer OTHER, SELFPAY ==
--- OUTSIDE RECORDS SUMMARY | 2024-10-10 08:54 | XMS_ITS | Encounter Summary ---
Author Organization [facility] Address [address] [place] [address] Care Team Providers Care Marine Equipment Test Engineer Name Role Phone Haley Ortega MD Primary Care Prov ider Reason for Visit * Consultation (Routine) - Authorized Specialty Diagnoses / Procedures Referred By Hannah verma Referred To Contact Physical Therapy Diagnoses Left knee pain, unspecified chronicity Niles Matamoros PA [address] [place] [id number] Phone: tel: fax: Referral ID Status Reason Start Date Expiration Date Visits Requested Visits Authorized [id number] Authorized Consult and Treat 09/13/2024 09/13/2025 13 13 Encounter Details Date Type Department Care Team (Latest Contact Info) Description 10/05/2024 2:00 PM EDT Evaluation Outpatient Rehabilitation [address] [phone] Rakan Posada, BRENDA Left knee pain, unspecified chronicity (Primary Dx) Social History Tobacco Use Types Packs/Day Years Used Date Smoking Tobacco: Never Smokeless Tobacco: Never Alcohol Use Standard Drinks/Week Comments Not Currently 0 (1 standard drink = 0.6 oz pur e alcohol) Comments No Sex and Gender Information Value Date Recorded Sex Assigned at Female 07/23/2024 10:20 PM EST Legal Sex Female 8:30 AM EST Gender Identity Female 07/23/2024 10:20 PM EST Sexual Orientation Choose not to disclose 2024 10:20 PM EST documented as of this encounter Progress Notes * Rakan Posada PT - 10/05/2024 2:00 PM EDT Images from the original note were not included. [facility] - Outpatient PHYSICAL THERAPY EVALUATION Date: 10/05/2024 Visit Number: 1 Patient Name: Deanne Bush : 1970 Age: 54 y.o. Gender: female Diagnosis: ICD-10-CM ICD-9-CM 1. Left knee pain, unspecified chronicity M25.562 719.46 Ambulatory referral to Physical Therapy and Athletic Training Date of Onset/Surgery: 07/23/2024 Referring Provider: Niles Matamoros PA Insurance: Payor: [employer] [facility] / Plan: [employer] [facility] / Product Type: *No Product type* / Patient identified by: Rakan Posada PT Language: Speaks and understands Telugu as preferred language with no diplomatic interpreter/translator required Chart Reviewed: Yes Medications: Current Outpatient Medications on File Prior to Visit Medication Sig Dispense Refill adalimumab (HUMIRA) 40 mg/0.8 mL syringe Inject 0.8 mL (40 mg total) under the skin every 14 (fourteen) days. amLODIPine (NORVASC) 5 mg tablet TAKE 1 TABLET BY MOUTH DAILY 90 tablet 1 cholecalciferol (Vitamin D3) 50 mcg (2,000 unit) capsule Take 1 capsule (2,000 Units total) by mouth 1 (one) time each day. 90 capsule 1 folic acid (FOLVITE) 1 mg tablet Take 1 tablet (1,000 mcg total) by mouth 1 (one) time each day. 90tablet 1 ibuprofen (ADVIL,MOTRIN) 600 mg tablet Take 1 tablet (600 mg total) by mouth 1 (one) time each day if needed. methotrexate 2.5 mg tablet TAKE 4 TABLETS BY MOUTH EVERY WEEK omeprazole (PriLOSEC) [address] capsule TAKE 1 CAPSULE BY MOUTH DAILY 90 capsule 3 No current facility-administered medications on file prior to visit. Advised Patient to contact MD with any questions regarding medications and importance of managing medication information. has a past medical history of Hypertension, Pain in joint, multiple sites (06/06/2012), Seropositive rheumatoid arthritis ([facility] V24, [facility] V28) (08/09/2012), and Vitamin D deficiency (03/08/2013). has a past surgical history that includes Tubal ligation (06/07/2010); Oophorectomy (06/07/2010); Other surgical history; Appendectomy (10/22/2021); and Colonoscopy (04/23/2022). has No Known Allergies. Precautions: SUBJECTIVE History of Present Illness/Subjective Report: Pt reports insidious onset of R knee pain that got progressively worse over several days. Pt went to ED after 3 days x-rayed, US and attempt to aspirate the knee joint w/ no fluid found. Pt was discharged and had f/u w/ PCP and sent to orthopedics and PT referral. Pt was seen in orthopedics and given PT referral. Pain: Pain location(s): No L knee pain. Pt notes discomfort 1-2x/week but resolves on it's own. Pt reports at times has end range flex and ext L knee pain. Home Environment: Resides w/ 2 story home. W/D are in basement, pt does not do laundry. R hand dominant. 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 Prior Level of Function: Denies L knee pain or issues prior to Jul 2024. Current Functional Limitations: Reported by Patient On days when discomfort is presents she tends to favor L leg, limits her walking and climb stairs one at a time. Is the patient at Risk for Falls: No OBJECTIVE General Observations/Posture/Comments: NAD, pleasant and cooperative. Normal gait pattern at this time. Seated L patella is kyle and positioned laterally on L. LE MMT Right Left Knee flexion 5/5 5/5 Knee extension 5/5 4/5 L hip abd=4-/5, R=4/5. L VMO= 3+/5, R=5/5. LE ROM AROM Right AROM Left PROM Right PROM Left Knee flexion (0-150) 143 145 WNL WNL Knee extension (0) WNL WNL slight tightness WNL WNL left Knee Swelling: None Effusion: Negative Tenderness: None Range of Motion: Extension: Flexion: McMurrays: Positive Anterior Lachmann: Negative Anterior Drawer: Negative Posterior Drawer: Negative Varus Stress Test 0: Negative Varus Stress Test 30: Negative Valgus Stress Test 0: Negative Valgus Stress Test 30: Negative Patellar Apprehension: No Bounce home Positive Apley's compression/distraction Negative Thessaly Test (-) L. Palpation: L patellofemoral joint is hypermobile vs R. Pt noted medial R knee joint pain w/ VMO quad set, pain resolved w/ manual medial glide and hold during quad set. Discussed Ramirez taping next visit and pt agreed. Pt instructed in supine banded clam shells, (PTB above knees), and seated VMO quad sets short of pain to include demo and trial. Written instructions issued and reviewed with patient. ASSESSMENT: IE completed this visit. Pt was able to return demonstration of new HEP after instruction. Rehabilitation Potential: Rehab Potential: Condition Has Potential to Improve Deanne Bush is a 54 y.o. female presenting for outpatient physical therapy evaluation with complaints of inconsistent L knee discomfort. Skilled Physical therapy is medically necessary to reach PT goals, improve ROM, strength, function and pain levels Learning Needs: Were Patient Learning needs assessed: Yes Learning Preferences: Explanation, Demonstration, and Printed Materials Barriers to Learning: No Barriers to Learning Patient Education: [x] Discussed, with patient and/or caregiver, the recommended plan of care/goals, the importance oftherapy and appointment compliance in order to achieve goals in a timely manner. GOALS Goals Addressed This Visit's Progress LTGs 12 visits (pt-stated) Pt will report a 70% decrease in frequency and intensity of L knee discomfort when walking and or climbing stairs. Pt will demonstrate L LE strength of 4/5 or better to increase tolerance to walking and stair negotiation. Pt will be Independent and compliant with final HEP. STG's 6 visits (pt-stated) Pt will report a 50% decrease in frequency and intensity of L knee discomfort when walking and or climbing stairs. Pt will demonstrate a 1/2 grade of better increase in L LE strength deficits to increase tolerance to walking and stair negotiation. Pt is Independent and compliant with initial HEP. PLAN POC Development/Review: Initial Evaluation; Participants: Patient Skilled Therapy Plan Required to improve ROM, strength, function, pain levels and achiever PT/pt goals. Planned Therapy Interventions: Cold Pack, E-Stim -- Unattended, Hot Pack, Kinesiotaping, Manual Therapy, Neuromuscular Re-education, Patient / Family Education, Therapeutic Activity, and Therapeutic Exercise Skilled PT recommended at a freq of 2x/week for 12 visits, with a re-eval after 4 wks. Recommended Consults: none Equipment Recommended: none; Equipment Provided: none BILLING TOTAL TREATMENT TIME: 50 Minutes Evaluation Medium Complexity Justification ::: A history of present problem with 1 - 2 personal factors and/or co-morbidities that impact the plan of care, An examination of body systems using standardized tests and measures in addressing a total of 3 or more elements from any of the following bodystructures and functions, activity limitations, and/or participation restrictions, and Moderate time effort (typically 30 minutes) spent [id number] with the patient and/or family Documentation completed by Rakan Posada PT OUTPATIENT [address] Dept: [phone] Dept PATIENT NAME: Deanne Bush : 1970 Certification: This is to certify that the above named patient, who is under my care, requires skilled Therapy services as described in the above treatment plan. I further certify that the services outlined in this plan are skilled and medically necessary. I have reviewed this plan for rehabilitation services, and I recommend that these services continue to meet the above stated goals and plan. SIGNATURE: DATE Niles Matamoros PA Referring provider documented in this encounter Plan of Treatment Upcoming Encounters Date Type Department Care Team (Late st Contact Info) Description 10/12/2024 5:00 PM EDT Treatment Outpatient [address] [phone] Margaret Cesar, MORTGAGE CONSULTANT 10/16/2024 5:00 PM EDT Treatment Outpatient Rehabilitation - [address] [phone] Margaret Cesar, MORTGAGE CONSULTANT 10/19/2024 5:00 PM EDT Treatment Outpatient Rehabilitation - [address] [phone] Margaret Cesar, MORTGAGE CONSULTANT 10/23/2024 5:00 PM EDT Treatment Outpatient Rehabilitation - [address] [phone] Margaret Cesar, MORTGAGE CONSULTANT 10/26/2024 8:30 AM EDT Office Visit Orthopedics - [address] [phone] Niles Matamoros PA [address] [place] [address] 10/26/2024 5:00 PM EDT Treatment Outpatient Rehabilitation - [address] [phone] Margaret Cesar, MORTGAGE CONSULTANT 11/06/2024 5:00 PM EDT Treatment Outpatient Rehabilitation - [address] [phone] Margaret Cesar, MORTGAGE CONSULTANT 11/09/2024 5:00 PM EDT Treatment Outpatient Rehabilitation - [address] [phone] Rakan Posada, PT 10/02/2025 8:15 AM EDT Office Visit [facility]mon[facility] [address] [phone] Brittany Lora MD [address] [address] documented as of this encounter Goals Goal Patient Goal Type Associated Problems Recent Progress Patient-Stated? Author STG's 6 visits General Yes Rakan Posada, PT Note: Pt will report a 50% decrease in frequency and intensity of L knee discomfort when walking and or climbing stairs. Pt will demonstrate a 1/2 grade of better increase in L LE strength deficits to increase tolerance to walking and stair negotiation. Pt is Independent and compliant with initial HEP. LTGs 12 visits General Yes Rakan Posada, PT Note: Pt will report a 70% decrease in frequency and intensity of L knee discomfort when walking and or climbing stairs. Pt will demonstrate L LE strength of 4/5 or better to increase tolerance to walking and stair negotiation. Pt will be Independent and compliant with final HEP. documented as of this encounter Visit Diagnoses Diagnosis Left knee pain, unspecified chronicity- Primary documented in this encounter Orders Outpatient Referral Count Last Ordered Date Fir st Ordered Date AMB REFERRAL TO PHYSICAL THE [facility] AND ATHLETIC TRAINING 1 10/05/2024 documented in this encounter Care Teams Marine Equipment Test Engineer Relationship Specialty Start Date End Date Haley Ortega MD [address] [place] [id number] PCP - General Internal Medicine 12/15/21 documented as of this encounter
--- OUTSIDE RECORDS SUMMARY | 2024-10-10 08:54 | XMS_ITS | Clinical Summary ---
Author Organization [facility] Address [address] [place] [phone] Phone Care Team Providers Care Field Secretary Name Role Phone Haley Ortega MD Primary Care Prov ider Allergies No known active allergies Medications folic acid (FOLVITE) 1 mg tabletIndicatio ns:Hospital discharge follow-up Take 1 tablet (1,000 mcg total) by mouth 1 (one) time each day. 90 tablet 1 5 Active cholecalciferol (Vitamin D3) 50 mcg (2,000 unit) capsuleIndicati ons:vitamin D deficiency Take 1 capsule (2,000 Units total) by mouth 1 (one) time each day. 90 capsule 1 5 Active amLODIPine (NORVASC) 5 mg tablet TAKE 1 TABLET BY MOUTH DAILY 90 tablet 1 5 Active omeprazole (PriLOSEC) [address] capsule TAKE 1 CAPSULE BY MOUTH DAILY 90 capsule 3 5 Active ibuprofen (ADVIL,MOTRIN) 600 mg tablet Take 1 tablet (600 mg total) by mouth 1 (one) time each day if needed. 4 Active methotrexate 2.5 mg tablet TAKE 4 TABLETS BY MOUTH EVERY WEEK Active adalimumab (HUMIRA) 40 mg/0.8 mL syringe Inject 0.8 mL (40 mg total) under the skin every 14 (fourteen) days. Active predniSONE (DELTASONE) 20 mg tabletIndicatio ns:Acute pain of left knee,Hospital discharge follow-up Take 60 mg PO daily for 3 days, then take 40 mg PO daily for 3 days, then 20 mg PO daily for 3 days, then stop 18 tablet 5 09/14/19 25 Discontinu ed(Therapy completed) Active Problems Problem Noted Date Diagnosed Date Renal cyst, right 08/01/2021 Hypertension 04/16/2021 Obstructive sleep apnea 06/10/2020 Overview (05/08/2024): [facility] Home Sleep Apnea Test: Date 06/02/2020; Wt 200#; BMI 32; IRASEMA (AHI) 52, AI 35; HI 17; Unclassified apneas 123; Obstructive apneas 68; Central apneas 42; Mixed apneas 2; hypopneas 104; average oxygen saturation 92% (lowest 79% with saturations <88% for 5% or more of study) - Obstructive Sleep Apnea - severe; mostly unclassified, obstructive and central apneas: Additionally hypopneas; with sleep related hypoventilation by 2019 home sleep apnea test. Nocturnal hypoxemia 06/10/2020 Multiple thyroid nodules 05/01/2020 Malignant neoplasm of cervix ([facility] V24, [facility]/ CC V28) 07/13/2017 Overview (05/08/2024): Positive cone biopsy 0 06/17/17 - hysterectomy 08/22 Vitamin D deficiency 03/08/2013 Assessment & Plan (07/25/2024 1:05 PM EST): Patient had a history of vitamin D deficiency. I will start patient on vitamin D supplement. Prescription sent to the pharmacy. Orders: cholecalciferol (Vitamin D3) 50 mcg (2,000 unit) capsule; Take 1 capsule (2,000 Units total) by mouth 1 (one) time each day. Seropositive rheumatoid arth ritis ([facility] V24, [facility] V28) 08/09/2012 Overview (05/08/2024): Onset 03/18: RF, TRINO positive, anti DNA negative. Methotrexate started 08/17; Enbrel added late October Enbrel loosing effectiveness; Humira started Last Assessment & Plan: Increase methotrexate to 8 tab once a week Continue folic acid 1mg daily Ibuprofen if you need it for pain Prednisone 2 today then as directed Lab before next visit Encounters Date Type Department Care Team Description 10/09/2024 4:30 PM EDT Treatment Outpatient Rehabilitation - [address] [phone] Lanette Reilly, RN FIELD Left knee pain, unspecified chronicity (Primary Dx) 10/05/2024 2:00 PM EDT Evaluation Outpatient Rehabilitation - [address] [phone] Rakan Posada, PT Left knee pain, unspecified chronicity (Primary Dx) 10/05/2024 Plan of Care Documentation Outpatient Rehabilitation - [address] [phone] 10/05/2024 Plan of Care Documentation Outpatient Rehabilitation - [address] [phone] 10/02/2024 1:45 PM EDT Office Visit [facility] [address] [place] [phone] Brittany Lora MD Obstructive sleep apnea (Primary Dx) 09/13/2024 2:00 PM EDT Consult Orthopedics - [address] [phone] Niles Matamoros PA Left knee pain, unspecified chronicity (Primary Dx) 07/25/2024 10:00 AM EST [facility] Visit [facility] [address] [phone] Camelia Payan NP Acute pain of left knee (Primary Dx); Poorly controlled blood pressure; Vitamin D deficiency; Hospital discharge follow-up 07/23/2024 10:09 PM EST - 07/24/2024 1:50 AM EST Emergency [facility] [address] [place] [phone] Pain (Primary Dx); Hemarthrosis of left knee; Payan's cyst of knee, left Discharge Disposition: Home or Self Care from Last 3 Months Immunizations Name Administration Dates Next Due Influenza Quadravalent, MDCK , 0.5ml, preservative free (Flucelvax) 6mo and older 02/12/2024,03/11/2021 Influenza trivalent, with pr eservative (Fluzone; Afluria) 6mo and older 03/17/2016,05/20/2015,04/03/2014,02/28 PPD Test 10/05/2013,07/13/2013 Pneumococcal polysaccharide 23 valent (Pneumovax 23) 2yo and older 07/13/2013,04/11/2009 Tdap Tetanus diptheria acell ular pertussis (Boostrix; Adacel) 7yo and older 01/06/2023,08/17/2012 Surgical History Surgery Date Site/Laterality Comments TUBAL LIGATION 06/07/2010 PROCEDURE: HISTORICAL TUBAL LIGATION OOPHORECTOMY 06/07/2010 PROCEDURE: HISTORICAL OOPHORECTOMY; COMMENT: one ovary, benign mass OTHER SURGICAL HISTORY PROCEDURE: HISTORICAL UNSPECIFIED SURGERY; COMMENT: sinus surgery APPENDECTOMY 10/22/2021 PROCEDURE: HISTORICAL APPENDECTOMY COLONOSCOPY 04/23/2022 PROCEDURE: HISTORICAL COLONOSCOPY; COMMENT: normal Medical History Medical History Date Comments Pain in joint, multiple sites 06/06/2012 DX :Pain in joint, multiple sites Seropositive rheumatoid arth ritis (CMS/HCC V24, CMS/HCC V28) 08/09/2012 DX:Seropositive rheumatoid arthritis (HCC); COMMENT: Onset 03/18: RF, TRINO positive, anti DNA negative. Methotrexate started 08/17; Enbrel added late October 2013 Vitamin D deficiency 03/08/2013 DX:Vitamin D deficiency Hypertension Family History Medical History Relation Name Comments Colon cancer Aunt 1 maternal aunt Other: ovarian cancer Aunt 2 matern al aunt No Known Problems Daughter 1 No Known Problems Daughter 2 No Known Problems Father no contact Prostate cancer Maternal Grandfather No Known Problems Maternal Grandmother Stroke Mother RA, PVD, migrai ne, HTN Prostate cancer Other 1 maternal gre at uncle Prostate cancer Other 2 maternal gre at uncle Breast cancer Other 3 maternal first cousin Other: Lupus Sister No Known Problems Son Breast cancer Neg Hx Relation Name Status Comments Aunt 1 Alive Aunt 2 Alive Daughter 1 Alive Daughter 2 Alive Father Alive Maternal Grandfather Maternal Grandmother Mother Other 1 Other 2 Other 3 Sister Alive Son Alive Social History Tobacco Use Types Packs/Day Years Used Date Smoking Tobacco: Never Smokeless Tobacco: Never Tobacco Cessation:Counseling Given: Not Answered Alcohol Use Standard Drinks/Week Comments Not Currently 0 (1 standard drink = 0.6 oz pur e alcohol) Comments No Sex and Gender Information Value Date Recorded Sex Assigned at Female 07/23/2024 10:20 PM EST Legal Sex Female 8:30 AM EST Gender Identity Female 07/23/2024 10:20 PM EST Sexual Orientation Choose not to disclose 2024 10:20 PM EST Obstetrics History Last Filed Vital Signs Vital Sign Reading Time Taken Comments Blood Pressure 144/85 10/02/2024 2:06 PM EDT Pulse 95 10/02/2024 2:06 PM EDT Temperature 36.6 ??C (97.9 ??F) 10/02/2024 2:06 PM ED T Respiratory Rate 17 10/02/2024 2:06 PM EDT Oxygen Saturation 98% 10/02/2024 2:06 PM EDT Inhaled Oxygen Concentration - - Weight 101 kg (223 lb 3.2 oz) 10/02/2024 2:06 PM EDT Height 167.6 cm (5' 6 ) 10/02/2024 2:06 PM EDT Body Mass Index 36.03 10/02/2024 2:06 PM EDT Plan of Treatment Upcoming Encounters Date Type Department Care Team (Late st Contact Info) Description 10/12/2024 5:00 PM EDT Treatment Outpatient Rehabilitation - [address] [phone] Margaret Cesar, RN FIELD 10/16/2024 5:00 PM EDT Treatment Outpatient [address] [phone] Margaret Cesar, RN FIELD 10/19/2024 5:00 PM EDT Treatment Outpatient [address] [phone] Margaret Cesar, RN FIELD 10/23/2024 5:00 PM EDT Treatment Outpatient Rehabilitation - [address] [phone] Margaret Cesar, RN FIELD 10/26/2024 8:30 AM EDT Office Visit Orthopedics - [address] [phone] Niles Matamoros, [facility] [address] [place], [place] 10/26/2024 5:00 PM EDT Treatment Outpatient Rehabilitation - [address] [phone] Margaret Cesar, RN FIELD 11/06/2024 5:00 PM EDT Treatment Outpatient Rehabilitation - [address] [phone] Margaret Cesar, RN FIELD 11/09/2024 5:00 PM EDT Treatment Outpatient Rehabilitation - [address] [phone] Rakan Posada, PT 10/02/2025 8:15 AM EDT Office Visit Pulmonolgy [facility] [address] [phone] Brittany Lora MD [address] [phone] Health Maintenance Due Date Last Done Comments Hepatitis B Vaccines (1 of 3 - 19+ 3-dose series) 1990 Zoster Vaccines (1 of 2) 1990 Cervical Cancer Screening: HPV 02/05/1992 Pneumococcal Vaccine: 50+ Years (3 of 3 - PCV) 07/13/2014 07/13/2013, 04/11/2009 Pneumococcal Vaccine: Pediatrics (0 to 5 Years) and At-Risk Patients (6 to 64 Years) (3 of 3 - PCV) 07/13/2014 07/13/2013, 04/11/2009 COVID-19 Vaccine (3 - Moderna risk series) 08/30/2020 08/02/2020, 07/05/2020 Depression Screening 05/16/2022 HIV Screening 05/16/2022 Social Influencers of Health Screening 05/16/2022 Breast Cancer Screening 07/12/2025 07/12/19 24, 07/07/2022, 07/02/2021 Hypertension/CHF/CAD Annual BMP Blood Test 07/23/2025 07/23/2024, 08/12/2022 Cholesterol Screening (Lipid Panel) 08/13/2027 08/12/2022 Colorectal Cancer Screening: Colonoscopy 04/24/2032 04/23/2022 DTaP,Tdap,and Td Vaccines (3 - Td or Tdap) 01/06/2033 01/06/2023, 08/17/2012 Hepatitis C Screening Completed 05/03/2020 Influenza Vaccine Completed 02/12/2024, , 03/17/2016, Additional history exists HIB Vaccines Aged Out No longer eligi ble based on patient's age to complete this topic HPV Vaccines Aged Out No longer eligi ble based on patient's age to complete this topic Hepatitis A Vaccines Aged Out No long er eligible based on patient's age to complete this topic IPV Vaccines Aged Out No longer eligi ble based on patient's age to complete this topic MMR Vaccines Aged Out No longer eligi ble based on patient's age to complete this topic Meningococcal ACWY Vaccine Aged Out N o longer eligible based on patient's age to complete this topic Meningococcal B Vaccine Aged Out No l onger eligible based on patient's age to complete this topic RSV Immunization Patients Under 20 months Aged Out No longer eligible based on patient's age to complete this topic Varicella Vaccines Aged Out No longer eligible based on patient's age to complete this topic Goals Goal Patient Goal Type Associated Problems [...] be Independent and compliant with final HEP. Procedures Procedure Name Priority Date/Time Associated Diagnosis Comments POLYSOMNOGRAM WITH CPAP Routine 08/29/2024 4:22 PM EDT DIFFERENTIAL BODY FLUID STAT 07/23/2024 11:20 PM EST CELL COUNT WITH REFLEX DIFFERENTIAL, BODY FLUID STAT 07/23/2024 11:20 PM EST CRYSTAL IDENTIFICATION, BODY FLUID STAT 07/23/2024 11:20 PM EST CULTURE BODY FLUID WITH GRAM STAIN STAT 07/23/2024 11:20 PM EST ED JOINT ASPIRATION/INJECTION Routine 07/23/2024 11:14 PM EST DE ARTHROCENTESIS/ASPIRAT ION/INJECTION MAJOR JOINT/BURSA W/O U/S GUIDANCE Routine 07/23/2024 11:14 PM EST XR KNEE 4+ VIEWS LEFT STAT 07/23/2024 10:15 PM EST CBC WITH AUTO DIFFERENTIAL STAT 07/23/2024 10:04 PM EST URIC ACID STAT 07/23/2024 10:04 PM EST BASIC METABOLIC PANEL STAT 07/23/2024 10:04 PM EST CBC AND DIFFERENTIAL STAT 07/23/2024 10:04 PM EST VAS US DUPLEX LOWER EXT VENOUS LEFT STAT 07/23/2024 8:40 PM EST Pain SCREENING MAMMOGRAPHY BI 2-VIEW BREAST INC CAD Routine 07/12/2023 8:37 AM EST Encounter for screening mammogram for malignant neoplasm of breast LIPID PANEL Routine 08/12/2022 COLONOSCOPY Routine 04/23/2022 HEPATITIS C SCREENING Routine 05/03/2020 from Last 3 Months or Most Recently Relevant to Health Maintenance Results * Polysomnography with PAP (08/29/2024 4:22 PM EDT) us Historical Provider [facility] ORDERABLES F inal Result * Cell count with reflex differential, body fluid (07/23/2024 11:20 PM EST) Body Fluid Total Nucleated Cells 13 /mm3 LAB HEMETOLOGY METHOD 07/24/2024 1:32 AM EST [facility] Body Fluid RBC 24,000 /mm3 LAB HEMETOLOGY METHOD 07/24/2024 1:32 AM EST [facility] Body Fluid Color Red 07/24/2024 1:32 AM EST [facility] Body Fluid Clarity Bloody 07/24/2024 1:32 AM EST [facility] Body Fluid Source Synovial 07/24/2024 1:32 AM EST [facility] Synovial Fluid Structure of left knee region / Unknown Non-blood Collection / Unknown 07/23/2024 11:20 PM EST 07/24/2024 12:05 AM EST Narrative [facility] - 07/24/2024 1:32 AM EST No reference ranges have been established for body fluids. Clinical correlation recommended. Sohail [facility] LAB BODY FLUIDS AND STOOL S ORDERABLES Final Result [facility] [address] [place] [address], * Culture body fluid with gram stain (07/23/2024 11:20 PM EST) Fluid Culture No growth at 3 days LAB MICROBIOLOGY METHOD 07/27/2024 10:30 AM EST [facility] Gram Stain Result Rare Polymorphonuclear leukocytes 07/27/2024 10:30 AM [facility] Gram Stain Result No Epithelial cells 07/27/2024 10:30 AM [facility] Gram Stain Result No organisms seen 07/27/2024 10:30 AM [facility] Synovial Fluid Structure of left knee region / Unknown Non-blood Collection / Unknown 07/23/2024 11:20 PM EST 07/24/2024 12:05 AM EST [facility] LAB MICROBIOLOGY - GENERA L ORDERABLES Final Result [facility] [address] [place] [address], * Differential body fluid (07/23/2024 11:20 PM EST) Fluid Neutrophils % 60 % LAB HEMETOLOGY METHOD 07/24/2024 1:32 AM [facility] Fluid Lymphocytes % 35 % LAB HEMETOLOGY METHOD 07/24/2024 1:32 AM [facility] Fluid Monocytes/Macro phages 4 % LAB HEMETOLOGY METHOD 07/24/2024 1:32 AM [facility] Fluid Eosinophils % 1 % LAB HEMETOLOGY METHOD 07/24/2024 1:32 AM [facility] Fluid Basophils % 0 % LAB HEMETOLOGY METHOD 07/24/2024 1:32 AM [facility] Fluid Other Cells % 0 % LAB HEMETOLOGY METHOD 07/24/2024 1:32 AM [facility] Synovial Fluid Structure of left knee region / Unknown Non-blood Collection / Unknown 07/23/2024 11:20 PM EST 07/24/2024 12:05 AM EST Narrative [facility] - 07/24/2024 1:32 AM EST No reference ranges have been established for body fluids. Clinical correlation recommended. Sohail [facility] LAB BODY FLUIDS AND STOOL S ORDERABLES Final Result Performing Organization Address [facility]/ZIP Co de Phone Number [facility] [address] [place] [address], [place] [phone] * Crystal identification, body fluid (07/23/2024 11:20 PM EST) Crystals, Fluid No diagnostic crystals seen No diagnostic crystals seen 07/24/2024 1:12 AM EST [facility] Unspecified Body Fluid Non-blood Collection / Unknown 07/23/2024 11:20 PM EST 07/24/2024 12:05 AM EST [facility] LAB BODY FLUIDS AND STOOL S ORDERABLES Final Result Performing Organization Address [facility]/ZIP Co de Phone Number [facility] [address] [place] [address], [place] [phone] * DE ARTHROCENTESIS/ASPIRATION/INJECTION MAJOR JOINT/BURSA W/O U/S GUIDANCE, HC ARTHROCENTESIS/FNA (07/23/2024 11:14 PM EST) Narrative Geovanny Nieto MD - 07/23/2024 11:14 PM EST PRESTON Henry ? 07/24/2024 ??1:36 AM Arthrocentesis Date/Time: 07/23/2024 11:14 PM Performed by: PRESTON Henry Authorized by: PRESTON Henry ?? Consent: ??Consent obtained: ??Verbal ??Consent given by: ??Patient ??Risks discussed: ??Bleeding, incomplete drainage, infection, nerve damage, poor cosmetic result and pain ??Alternatives discussed: ??No treatment [place] protocol: ??Procedure explained and questions answered to patient or proxy's satisfaction: yes ?Imaging studies available: yes ?Patient identity confirmed: ??Verbally with patient and arm band Location: ??Location: ??Knee ??Knee: ??L knee Anesthesia: ??Anesthesia method: ??Local infiltration ??Local anesthetic: ??Lidocaine 1% w/o epi Procedure details: ??Preparation: Patient was prepped and draped in usual sterile fashion ?Needle gauge: ??18 G ??Ultrasound guidance: no ?Approach: ??Lateral ??Aspirate amount: ??5 cc ??Aspirate characteristics: ??Bloody ??Steroid injected: no ?Specimen collected: yes ?? Post-procedure details: ??Dressing: ??Adhesive bandage ??Procedure completion: ??Tolerated us Sohail [facility] IN CLINIC/BEDSIDE ORDERAB LES Final Result * XR Knee 4+ Views Left (07/23/2024 10:15 PM EST) Anatomical Region Laterality Modality Lower Extremities, Knee Left [facility] 07/24/2024 9:48 AM EST Impressions 07/24/2024 9:51 AM EST No fracture or dislocation. Mild osteoarthritis. There is a large suprapatellar joint effusion. Code 60419 -------- FINAL REPORT -------- Dictated By: Rafael Ariza Dictated Date: 07/24/2024 09:48 ET Assigned Physician: Rafael Ariza Reviewed and Electronically Signed By: Rafael Ariza Signed Date: 07/24/2024 09:51 ET Workstation ID: [id number] Transcribed By: Self Edit Transcribed Date: 07/24/2024 09:50 ET Narrative 07/24/2024 9:51 AM EST HISTORY: The patient is a 54-year-old female with left knee pain, nontraumatic. FINDINGS: AP, lateral, internal rotation, and external rotation views of the left knee are obtained. The study demonstrates no fracture or dislocation. There is peaking of the medial tibial spine and an osteophyte arises from the upper pole of the patella. These findings are consistent with mild osteoarthritis. There is a large suprapatellar joint effusion, measuring 7.2 x 2.4 cm. Procedure Note Rafael Ariza MD - 07/24/2024 HISTORY: The patient is a 54-year-old female with left knee pain,nontraumatic. FINDINGS: AP, lateral, internal rotation, and external rotation views ofthe left knee are obtained. The study demonstrates no fracture ordislocation. There is peaking of the medial tibial spine and an osteophytearises from the upper pole of the patella. These findings are consistentwith mild osteoarthritis. There is a large suprapatellar joint effusion,measuring 7.2 x 2.4 cm. IMPRESSION: No fracture or dislocation. Mild osteoarthritis. There is a largesuprapatellar joint effusion. Code 39314 -------- FINAL REPORT -------- Dictated By: Rafael Ariza Dictated Date: 07/24/2024 09:48 ET Assigned Physician: Rafael Ariza Reviewed and Electronically Signed By: Rafael Ariza Signed Date: 07/24/2024 09:51 ET Workstation ID: [id number] Transcribed By: Self Edit Transcribed Date: 07/24/2024 09:50 ET us S[facility] IMG XR PROCEDURES Final R esult * (ABNORMAL) CBC auto differential (07/23/2024 10:04 PM EST) WBC 7.1 4.8 - 10.8 K/mcL LAB HEMETOLOGY METHOD 07/23/2024 10:46 PM [facility] RBC 4.60 3.80 - 4.80 M/mcL LAB HEMETOLOGY METHOD 07/23/2024 10:46 PM [facility] Hemoglobin 12.7 11.5 - 16.0 g/dL LAB HEMETOLOGY METHOD 07/23/2024 10:46 PM [facility] Hematocrit 40.0 35.0 - 47.0 % LAB HEMETOLOGY METHOD 07/23/2024 10:46 PM [facility] MCV 87.1 79.0 - 98.0 FL LAB HEMETOLOGY METHOD 07/23/2024 10:46 PM [facility] MCH 27.7 27.0 - 32.0 pcg LAB HEMETOLOGY METHOD 07/23/2024 10:46 PM [facility] MCHC 31.8(L) 32.0 - 37.0 g/dL LAB HEMETOLOGY METHOD 07/23/2024 10:46 PM [facility] RDW 13.5 11.0 - 15.0 % LAB HEMETOLOGY METHOD 07/23/2024 10:46 PM [facility] Platelets 287 130 - 400 K/mcL LAB HEMETOLOGY METHOD 07/23/2024 10:46 PM [facility] MPV 10.6 7.0 - 11.0 FL LAB HEMETOLOGY METHOD 07/23/2024 10:46 PM [facility] NRBC 0.0 <1.0 % LAB HEMETOLOGY METHOD 07/23/2024 10:46 PM [facility] NRBC Absolute 0.00 <0.10 K/mcL LAB HEMETOLOGY METHOD 07/23/2024 10:46 PM [facility] Neutrophils Relative 53.9 % LAB HEMETOLOGY METHOD 07/23/2024 10:46 PM [facility] Lymphocytes Relative 33.5 % LAB HEMETOLOGY METHOD 07/23/2024 10:46 PM [facility] Monocytes Relative 10.6 % LAB HEMETOLOGY METHOD 07/23/2024 10:46 PM [facility] Eosinophils Relative 1.0 % LAB HEMETOLOGY METHOD 07/23/2024 10:46 PM [facility] Basophils Relative 0.6 % LAB HEMETOLOGY METHOD 07/23/2024 10:46 PM [facility] Immature Granulocytes Relative 0.4 % LAB HEMETOLOGY METHOD 07/23/2024 10:46 PM EST [facility] Neutrophils Absolute 3.82 1.50 - 7.00 K/[facility] LAB HEMETOLOGY METHOD 07/23/2024 10:46 PM EST [facility] Lymphocytes Absolute 2.37 1.00 - 5.00 K/mcL LAB HEMETOLOGY METHOD 07/23/2024 10:46 PM EST [facility] Monocytes Absolute 0.75 0.20 - 1.00 K/[facility] LAB HEMETOLOGY METHOD 07/23/2024 10:46 PM EST [facility] Eosinophils Absolute 0.07 0.00 - 0.50 K/[facility] LAB HEMETOLOGY METHOD 07/23/2024 10:46 PM EST [facility] Basophils Absolute 0.04 0.00 - 0.20 K/[facility] LAB HEMETOLOGY METHOD 07/23/2024 10:46 PM EST [facility] Immature Granulocytes Absolute 0.03 0.00 - 0.03 K/[facility] LAB HEMETOLOGY METHOD 07/23/2024 10:46 PM EST [facility] Blood Venous blood specimen / Unknown Venipuncture / Unknown 07/23/2024 10:04 PM EST 07/23/2024 10:37 PM EST us Sohail JOHNSTON LAB BLOOD ORDERABLES Katia l Result [facility] [address] [place] [address], * Uric acid (07/23/2024 10:04 PM EST) Uric Acid 3.1 3.1 - 7.8 mg/dL LAB CHEMISTRY METHOD 07/23/2024 11:04 PM EST [facility] Blood Venous blood specimen / Unknown Venipuncture / Unknown 07/23/2024 10:04 PM EST 07/23/2024 10:37 PM EST us Sohail [facility]STON LAB BLOOD ORDERABLES Katia l Result [facility] [address] [place] [address], [place] [phone] * Basic metabolic panel (07/23/2024 10:04 PM EST) Sodium 139 133 - 145 mmol/L LAB CHEMISTRY METHOD 07/23/2024 11:04 PM [facility] Potassium 3.7 3.5 - 5.5 mmol/L LAB CHEMISTRY METHOD 07/23/2024 11:04 PM [facility] Chloride 109 96 - 110 mmol/L LAB CHEMISTRY METHOD 07/23/2024 11:04 PM [facility] CO2 27 21 - 32 mmol/L LAB CHEMISTRY METHOD 07/23/2024 11:04 PM [facility] Anion Gap 3 3 - 11 LAB CHEMISTRY METHOD 07/23/2024 11:04 PM [facility] Glucose 89 70 - 100 mg/dL LAB CHEMISTRY METHOD 07/23/2024 11:04 PM [facility] BUN 20 5 - 25 mg/dL LAB CHEMISTRY METHOD 07/23/2024 11:04 PM [facility] Creatinine 0.69 0.50 - 1.10 mg/dL LAB CHEMISTRY METHOD 07/23/2024 11:04 PM [facility] eGFR 104 >=60 mL/min/1. 73m2 LAB CHEMISTRY METHOD 07/23/2024 11:04 PM [facility] Comment:Calculation based on the??Chronic Kidney Disease Epidemiology Collaboration (CKD-EPI) equation refit??without adjustment for race. BUN/Creatinine Ratio 29.0 LAB CHEMISTRY METHOD 07/23/2024 11:04 PM [facility] Calcium 9.5 8.5 - 10.5 mg/dL LAB CHEMISTRY METHOD 07/23/2024 11:04 PM EST [facility] Blood Venous blood specimen / Unknown Venipuncture / Unknown 07/23/2024 10:04 PM EST 07/23/2024 10:37 PM EST us Sohail JOHNSTON LAB BLOOD ORDERABLES Katia l Result [facility] [address] [place] [address], [place] [phone] * Vascular US Duplex Lower Extremity Venous Left (07/23/2024 8:40 PM EST) Anatomical Region Laterality Modality Vascular, Abdomen Ultrasound 07/24/2024 3:40 AM EST Impressions 07/24/2024 3:41 AM EST No deep vein thrombosis identified in the left lower extremity veins. -------- FINAL REPORT -------- Dictated By: Miguelina Dumont Dictated Date: 07/24/2024 03:40 ET Assigned Physician: Miguelina Dumont Reviewed and Electronically Signed By: Miguelina Dumont Signed Date: 07/24/2024 03:41 ET Workstation ID: [id number] Transcribed By: Self Edit Transcribed Date: 07/24/2024 03:40 ET Narrative 07/24/2024 3:41 AM EST INDICATION: edema pain in extremities atraumatic edema and pain to knee to posterior left calf COMPARISON: None TECHNIQUE: Ultrasound of the ??left lower extremity veins is performed using color-flow Doppler, graded compression with B mode Doppler with spectral analysis FINDINGS: The common femoral, superficial femoral and popliteal veins compress normally throughout their length. Normal response to distal augmentation is seen with calf compression. Included calf vessels are patent on color Doppler. Left popliteal cyst measuring 6.2 x 2.3 x 4.8 cm. Left knee joint effusion. Procedure Note Miguelina Dumont MD - 07/24/2024 INDICATION: edema pain in extremities atraumatic edema and pain to knee toposterior left calf COMPARISON: None TECHNIQUE: Ultrasound of the left lower extremity veins is performedusing color- flow Doppler, graded compression with B mode Doppler withspectral analysis FINDINGS: The common femoral, superficial femoral and popliteal veinscompress normally throughout their length. Normal response to distalaugmentation is seen with calf compression. Included calf vessels arepatent on color Doppler. Left popliteal cyst measuring 6.2 x 2.3 x 4.8 cm. Left knee joint effusion. IMPRESSION: No deep vein thrombosis identified in the left lower extremity veins. -------- FINAL REPORT -------- Dictated By: Miguelina Dumont Dictated Date: 07/24/2024 03:40 ET Assigned Physician: Miguelina Dumont Reviewed and Electronically Signed By: Miguelina Dumont Signed Date: 07/24/2024 03:41 ET Workstation ID: [id number] Transcribed By: Self Edit Transcribed Date: 07/24/2024 03:40 ET us Geovanny Nieto MD CV VASCULAR PROCEDURES Fi nal Result * SCREENING MAMMOGRAPHY BI 2-VIEW BREAST INC CAD (07/12/2023 8:37 AM EST) Anatomical Region Laterality Modality Radiographic Bing ging 07/07/2022 10:3 8 AM EST Narrative 07/12/2023 8:14 PM EST This is a summary report. The complete report is available in the patient's medical record. If you cannot access the medical record, please contact the sending organization for a detailed fax or copy. Exam: Screening mammogram Findings: Digital bilateral full-field screening mammography is performed with tomosynthesis and interpreted with the aid of computer-aided detection. ??Comparison is made with 07/07/2022 and 07/02/2021. Breast parenchyma is composed of scattered fibroglandular densities. ??No new suspicious mass, architectural distortion, or suspicious calcifications. Impression: No mammographic evidence of malignancy. BI-RADS 1 - negative Procedure Note Gisselle Crenshaw MD - 01/24/2024 This is a summary report. The complete report is available in thepatient's medical record. If you cannot access the medical record, pleasecontact the sending organization for a detailed fax or copy. Exam: Screening mammogram Findings: Digital bilateral full-field screening mammography is performedwith tomosynthesis and interpreted with the aid of computer-aideddetection. Comparison is made with 07/07/2022 and 07/02/2021. Breast parenchyma is composed of scattered fibroglandular densities. Nonew suspicious mass, architectural distortion, or suspiciouscalcifications. Impression: No mammographic evidence of malignancy. BI-RADS 1 - negative Dionna JOHNSTON IMG XR PROCEDURES Final Result * (ABNORMAL) Lipid panel (08/12/2022) Pathologist [facility] LDL/HDL Ratio 3 0 - 4 Triglycerides 133 0 - 150 mg/dL Cholesterol 200 0 - 200 mg/dL HDL 63 >=40 mg/dL LDL Cholesterol 111(A) 0 - 100 mg/dL Blood Venous blood specimen / Unknown Historical Provider LAB BLOOD ORDERABLES Katia l Result * Colonoscopy (04/23/2022) Pathologist [facility] Colonoscopy No interpretation , abstracted Anatomical Region Laterality Modality Other Historical Provider HEALTH MAINTENANCE Final Result * Hepatitis C Screening (05/03/2020) Pathologist [facility] Hepatitis C Screening abstracted Historical Provider HEALTH MAINTENANCE Final Result from Last 3 Months or Most Recently Relevant to Health Maintenance Insurance * Guarantor: Deanne Bush Account Type Relation to Patient Date of Phone Billing Address Personal/Family Self 1970 [phone] (Work) [address] [place] [address] [employer] [facility] Care Teams Field Secretary Relationship Specialty Start Date End Date Haley Ortega MD [address] [place] [address] PCP - General Internal Medicine 12/15/21
--- OUTSIDE RECORDS SUMMARY | 2024-10-10 08:55 | XMS_ITS | Encounter Summary ---
Author Organization [employer] Address [address] [place] [address] Care Team Providers Care Dog Track Kennel Manager Name Role Phone Haley Ortega MD Primary Care Prov ider Reason for Visit * Consultation (Routine) - Authorized Specialty Diagnoses / Procedures Referred By Hannah verma Referred To Contact Physical Therapy Diagnoses Left knee pain, unspecified chronicity Niles Matamoros PA [address] [place] [address] Phone: tel: fax: Referral ID Status Reason Start Date Expiration Date Visits Requested Visits Authorized [id number] Authorized Consult and Treat 09/13/2024 09/13/2025 13 13 Encounter Details Date Type Department Care Team (Late st Contact Info) Description 10/09/2024 4:30 PM EDT Treatment Outpatient Rehabilitation [address] [phone] Lanette Reilly, CUSTOMER ASSISTANT Left knee pain, unspecified chronicity (Primary Dx) [...] as of this encounter Progress Notes * Lanette Reilly PTA - 10/09/2024 4:30 PM EDT [facility]- Outpatient PHYSICAL THERAPY DAILY TREATMENT NOTE - OP Date: 10/09/2024 Visit Number: 1 Patient Name: Deanne Bush : 1970 Age: 54 y.o. Gender: female Diagnosis: ICD-10-CM ICD-9-CM 1. 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 Allergies: has No Known Allergies. Precautions: HX of RA. Fall risk: No SUBJECTIVE: Subjective Report: No pain @ the moment. I do get pinching and clicking in my L knee. Chart Reviewed: Yes Pain: None OBJECTIVE: Vitals: There were no vitals filed for this visit.; TREATMENT INTERVENTION: Ramirez's into L medial glide w/ education on care/removal. STM/MFR to L VMO, VL. Therex: Nu Step x 5 minutes. Standing L HS stretch on 2nd step x 3 reps w/ 30 sec hold. Standing HF stretch x 3 reps w/ 20 sec hold. Leg press w/ 5 cords x 3 sets of 10. Leg press w/ L LE w/ 3 cords x 2 sets of 10. Clamshells in H/L w/BTB x 2 sets of 10 * added to HEP. NEW HEP: Clamshells in H/L w/ BTB, ASSESSMENT/Response to Treatment Good No crepitus/ pinching reported after taping. Patient Education: Education provided: Clamshells in H/L w/ BTB * added to HEP> Education Provided To: Patient utilizing mode(s) of education Response to Education: Applied Knowledge, Verbal Understanding, and Demonstrated Skills PLAN POC Development/Review: No Change in the Plan of Care; Participants: Patient Interventions Time Entry: Modalities: None Therapeutic procedures: Manual Therapy: 8 minutes. Therex: 22 minutes Total Treatment Time: 30 minutes Documentation completed by Lanette Reilly PTA documented in this encounter Plan of Treatment Upcoming Encounters Date Type Department Care Team (Late st Contact Info) Description 10/12/2024 5:00 PM EDT Treatment Outpatient Rehabilitation - [address] [phone] Margaret Cesar, EVA 10/16/2024 5:00 PM EDT Treatment Outpatient Rehabilitation - [address] [phone] Margaret Cesar, EVA 10/19/2024 5:00 PM EDT Treatment Outpatient Rehabilitation [address] [phone] Margaret Cesar, EVA 10/23/2024 5:00 PM EDT Treatment Outpatient Rehabilitation [address] [phone] Margaret Cesar, CUSTOMER ASSISTANT 10/26/2024 8:30 AM EDT Office Visit Orthopedics - [address] [phone] Niles Matamoros PA [address] [place], [place] 10/26/2024 5:00 PM EDT Treatment Outpatient Rehabilitation - [address] [phone] Margaret Cesar, CUSTOMER ASSISTANT 11/06/2024 5:00 PM EDT Treatment Outpatient Rehabilitation - [address] [phone] Margaret Cesar, CUSTOMER ASSISTANT 11/09/2024 5:00 PM EDT Treatment Outpatient Rehabilitation - [address] [phone] Rakan Posada, PT 10/02/2025 8:15 AM EDT [facility] [address] [phone] Brittany Lora MD [address] [address] documented as of this encounter Goals Goal [...] unspecified chronicity- Primary documented in this encounter Care Teams Dog Track Kennel Manager Relationship Specialty Start Date End Date Haley Ortega MD [address] [place] [address] PCP - General Internal Medicine 12/15/21 documented as of this encounter
--- OUTSIDE RECORDS SUMMARY | 2024-10-10 08:55 | XMS_ITS | Encounter Summary ---
Author Organization [facility] Address [address] [place] [address] Care Team Providers Care Senior Etl Developer Name Role Phone Haley Ortega MD Primary Care Prov ider Encounter Details Date Type Department Care Team (Latest Contact Info) Description 10/05/2024 Plan of Care Documentation Outpatient Rehabilitation [address] [phone] Social History Tobacco Use Types Packs/Day Years [...] of this encounter Progress Notes * Rakan Posada, PT - 10/05/2024 3:50 PM EDT Images from the original note were not included. [facility] - Outpatient PHYSICAL THERAPY EVALUATION Date: 10/05/2024 Visit Number: 1 Patient Name: Deanne Bush : 1970 Age: 54 y.o. Gender: female Diagnosis: ICD-10-CM ICD-9-CM 1. Left knee pain, unspecified chronicity M25.562 719.46 Ambulatory referral to Physical Therapy and Athletic Training Date of Onset/Surgery: 07/23/2024 Referring Provider: Niles Matamoros PA Insurance: Payor: [employer] [facility] [place] / Plan: [employer] [place] / Product Type: *No Product type* / Patient identified by: Rakan Posada PT Language: Speaks and understands Romansh as preferred language with no pet technologist required Chart Reviewed: Yes Medications: Current Outpatient [...] joint, multiple sites (06/06/2012), Seropositive rheumatoid arthritis ([facility] V24, [facility] V28) (08/09/2012), and Vitamin D deficiency (03/08/2013). [...] does not do laundry. R hand dominant. 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 Prior Level of [...] Moderate time effort (typically 30 minutes) spent qkri-my-heup with the patient and/or family Documentation completed by Rakan Posada PT OUTPATIENT REHABILITATION - [address] Dept: [phone] Dept PATIENT NAME: Deanne Bush : 1970 [...] 5:00 PM EDT Treatment Outpatient Rehabilitation - [address] [phone] Margaret Cesar, MIXER PIGMENT 10/16/2024 5:00 PM EDT Treatment Outpatient Rehabilitation - [address] [phone] Margaret Cesar, MIXER PIGMENT 10/19/2024 5:00 PM EDT Treatment Outpatient Rehabilitation - [address] [phone] Margaret Cesar, MIXER PIGMENT 10/23/2024 5:00 PM EDT Treatment Outpatient Rehabilitation [address] [phone] Margaret Cesar, MIXER PIGMENT 10/26/2024 8:30 AM EDT Office Visit Orthopedics - [address] [phone] Niles Matamoros PA [address] [place], [place] 10/26/2024 5:00 PM EDT Treatment Outpatient Rehabilitation - [address] [phone] Margaret Cesar, MIXER PIGMENT 11/06/2024 5:00 PM EDT Treatment Outpatient Rehabilitation - [address] [phone] Margaret Cesar, MIXER PIGMENT 11/09/2024 5:00 PM EDT Treatment Outpatient Rehabilitation - [address] [phone] Rakan Posada, PT 10/02/2025 8:15 AM EDT Office Visit [facility] [address] [phone] Brittany Lora MD [address] [address] documented as of this encounter Goals Goal [...] documented as of this encounter Visit Diagnoses Not on filedocumented in this encounter Care Teams Senior Etl Developer Relationship Specialty Start Date End Date Haley Ortega MD [address] [place] [address] PCP - General Internal Medicine 12/15/21 documented as of this encounter
--- OUTSIDE RECORDS SUMMARY | 2024-10-10 08:55 | XMS_ITS | Encounter Summary ---
Author Organization [facility] Address [address] [place] [address] Care Team Providers Care Designer Writer Name Role Phone Haley Ortega MD Primary Care Prov ider Encounter Details Date Type Department Care Team (Latest Contact Info) Description 10/05/2024 Plan of Care Documentation Outpatient Rehabilitation - [address] [phone] Social History Tobacco Use Types Packs/Day Years [...] PM EST documented as of this encounter Plan of Treatment Upcoming Encounters Date Type Department Care Team (Late st Contact Info) Description 10/12/2024 5:00 PM EDT Treatment Outpatient Rehabilitation - [address] [phone] Margaret Cesar PTA 10/16/2024 5:00 PM EDT Treatment Outpatient Rehabilitation - [address] [phone] Margaret Cesar, HI LIFT OPERATOR 10/19/2024 5:00 PM EDT Treatment Outpatient Rehabilitation - [address] [phone] Margaret Cesar, HI LIFT OPERATOR 10/23/2024 5:00 PM EDT Treatment Outpatient Rehabilitation - [address] [phone] Margaret Cesar, HI LIFT OPERATOR 10/26/2024 8:30 AM EDT Office Visit Orthopedics - [address] [phone] Niles Matamoros PA [address] [place] [address] 10/26/2024 5:00 PM EDT Treatment Outpatient Rehabilitation - [address] [phone] Margaret Cesar, HI LIFT OPERATOR 11/06/2024 5:00 PM EDT Treatment Outpatient Rehabilitation - [address] [phone] Margaret Cesar, HI LIFT OPERATOR 11/09/2024 5:00 PM EDT Treatment Outpatient Rehabilitation - [address] [phone] Rakan Posada, PT 10/02/2025 8:15 AM EDT [facility] [address] [phone] Brittany oLra MD [address] [address] documented as of this encounter Goals Goal [...] on filedocumented in this encounter Care Teams Designer Writer Relationship Specialty Start Date End Date aHley Ortega MD [address] [place] [address] PCP - General Internal Medicine 12/15/21 documented as of this encounter
[2024-10-10 09:52] LABS: MANUAL DIFF FLAG NO
[2024-10-10 11:06] LABS: Basophils Percent Auto 0.6 % (0-2); Eosinophils Absolute Auto 0.1 X10*3/uL (0.0-0.4); Eosinophils Percent Auto 1.9 % (0-4); Hematocrit 39.1 % (37.0-47.0); Hemoglobin 12.8 g/dl (12.0-16.0); Imm Gran Abs Auto 0.01 X10*3/uL (0.00-0.03); Imm Gran Pct Auto 0.2 % (0.0-0.4); Lymphocytes Absolute Auto 1.7 X10*3/uL (1.2-4.9); Lymphocytes Percent Auto 35.7 % (20-40); Mean Corpuscular HGB Conc 32.7 g/dl (31.0-35.0); Mean Corpuscular Hemoglobin 28.6 pg (27.0-33.0); Mean Corpuscular Volume 87.5 fL (80.0-98.0); Monocytes Absolute Auto 0.4 X10*3/uL (0.1-1.2); Neutrophils Absolute Auto 2.5 x10*3/uL (2.0-8.3); Neutrophils Percent Auto 52.6 % (45-73); Platelet Count 211 X10*3/uL (160-400); Red Blood Count 4.47 X10*6/uL (4.20-5.50); Red Cell Distribution Width 14.3 % (11.0-16.0); White Blood Count 4.7 X10*3/uL (4.8-10.8)
[2024-10-10 12:20] LABS: Erythrocyte Sedimentation Rate 48 MM/HR (0-20)
[2024-10-10 14:15] LABS: Alanine Aminotransferase 44 U/L (0-31); Albumin Level 3.9 g/dL (3.5-5.0); Anion Gap 11 (12-20); Aspartate Amino Transferase 27 U/L (5-31); Bilirubin Total 0.4 mg/dL (0.0-1.0); Blood Urea Nitrogen 16 mg/dL (9-16); Calcium 9.1 mg/dL (8.4-10.2); Carbon Dioxide 25 mmol/L (22-29); Chloride 108 mmol/L (96-108); Estimated Glomerular Filt Rate > 60; Glucose Random 95 mg/dL (60-115); Sodium 140 mmol/L (135-145); Total Protein 7.7 g/dL (6.5-8.0); Uric Acid 4.2 mg/dL (2.4-5.7)
[2024-10-10 18:21] LABS: Alkaline Phosphatase 95 U/L (39-117)
== END 2024-10-10 08:32 | disposition home or self-care (01) ==
LOC: HO.10HDL 08:31
PROVIDERS: Visit Provider Student in an Organized Health Care Education/Training Program
DX: M05.9 Rheumatoid arthritis with rheumatoid factor, unspecified (principal); M10.9 Gout, unspecified; Z79.899 Other long term (current) drug therapy
CPT/HCPCS: 36415; 80053; 84550; 85025; 85652; 86140

== ENCOUNTER 2024-10-12 07:51 | Outpatient (AMB) | payer OTHER, SELFPAY ==
--- OUTSIDE RECORDS SUMMARY | 2024-10-12 07:53 | XMS_ITS | Encounter Summary ---
Author Organization [employer] Address [address] [place] [address] Care Team Providers Care Mill Operator Head Name Role Phone Haley Ortega MD Primary Care Prov ider Reason for Visit * Consultation (Routine) - Authorized Specialty Diagnoses / Procedures Referred By Hannah verma Referred To Contact Physical Therapy Diagnoses Left knee pain, unspecified chronicity Niles Matamoros PA [address] [place] [address] Phone: tel: fax: Referral ID Status Reason Start Date Expiration Date Visits Requested Visits Authorized [id number] Authorized Consult and Treat 09/13/2024 09/13/2025 13 13 Encounter Details Date Type Department Care Team (Late st Contact Info) Description 10/09/2024 4:30 PM EDT Treatment Outpatient Rehabilitation [address] [phone] Lanette Reilly, TAXICAB DISPATCHER Left knee pain, unspecified chronicity (Primary Dx) [...] Reilly PTA - 10/09/2024 4:30 PM EDT [facility]- Outpatient PHYSICAL THERAPY DAILY TREATMENT NOTE - OP Date: 10/09/2024 Visit Number: 1 Patient Name: Deanne Bush : 1970 Age: 54 y.o. Gender: female Diagnosis: ICD-10-CM ICD-9-CM 1. Left knee pain, unspecified chronicity M25.562 719.46 Date of Onset/Surgery: Multiple active episodes found Referring Provider: Niles Matamoros PA Insurance: Payor: [employer] [facility] / Plan: [employer] OF [place] / Product Type: *No Product type* / Patient Identified by: Lanette Reilly PTA Language: Speaks and understands Cook Islander as preferred language with no physical therapy assistant required Medications: Current Outpatient Medications on File [...] 5:00 PM EDT Treatment Outpatient Rehabilitation - [address] [phone] Margaret Cesar, EVA 10/16/2024 5:00 PM EDT Treatment Outpatient Rehabilitation - [address] [phone] Margaret Cesar, EVA 10/19/2024 5:00 PM EDT Treatment Outpatient Rehabilitation [address] [phone] Margaret Cesar, EVA 10/23/2024 5:00 PM EDT Treatment Outpatient Rehabilitation [address] [phone] Margaret Cesar, TAXICAB DISPATCHER 10/26/2024 8:30 AM EDT Office Visit Orthopedics - [address] [phone] Niles Matamoros PA [address] [place], [place] 10/26/2024 5:00 PM EDT Treatment Outpatient Rehabilitation - [address] [phone] Margaret Cesar, TAXICAB DISPATCHER 11/06/2024 5:00 PM EDT Treatment Outpatient Rehabilitation - [address] [phone] Margaret Cesar, TAXICAB DISPATCHER 11/09/2024 5:00 PM EDT Treatment Outpatient Rehabilitation - [address] [phone] Rakan Posada, PT 10/02/2025 8:15 AM EDT [facility] [address] [phone] Brittany Lora MD [address] [address] documented as of this encounter Goals Goal [...] Primary documented in this encounter Care Teams Mill Operator Head Relationship Specialty Start Date End Date Haley Ortega MD [address] [place] [address] PCP - General Internal Medicine 12/15/21 documented as of this encounter
--- OUTSIDE RECORDS SUMMARY | 2024-10-12 07:53 | XMS_ITS | Clinical Summary ---
Author Organization [facility] [address] [facility] Address [address] [place] [phone] Phone Care Team Providers Care Engineering Analyst Name Role Phone Haley Ortega MD Primary [...] 04/16/2021 Obstructive sleep apnea 06/10/2020 Overview (05/08/2024): [facility] Home Sleep Apnea Test: Date 06/02/2020; Wt [...] thyroid nodules 05/01/2020 Malignant neoplasm of cervix ([facility] V24, [facility] V28) 07/13/2017 Overview (05/08/2024): Positive cone [...] time each day. Seropositive rheumatoid arth ritis ([facility] V24, [facility] V28) 08/09/2012 Overview (05/08/2024): Onset [...] 4:30 PM EDT Treatment Outpatient Rehabilitation - [address] [phone] Lanette Reilly, FINANCIAL INVESTMENT ADVISER Left knee pain, unspecified chronicity (Primary Dx) 10/05/2024 2:00 PM EDT Evaluation Outpatient Rehabilitation - [address] [phone] Rakan Posada, PT Left knee pain, unspecified chronicity (Primary Dx) 10/05/2024 Plan of Care Documentation Outpatient Rehabilitation - [address] [phone] 10/05/2024 Plan of Care Documentation Outpatient Rehabilitation - [address] [phone] 10/02/2024 1:45 PM EDT Office Visit [facility] [address] [facility] [address] [place] [phone] Brittany Lora MD Obstructive sleep apnea (Primary Dx) 09/13/2024 2:00 PM EDT Consult Orthopedics - [address] [phone] Niles Matamoros PA Left knee pain, unspecified chronicity (Primary Dx) 07/25/2024 10:00 AM EST Office Visit [facility] - [address] [phone] Camelia Payan NP Acute pain of left knee (Primary Dx); Poorly controlled blood pressure; Vitamin D deficiency; Hospital discharge follow-up 07/23/2024 10:09 PM EST - 07/24/2024 1:50 AM EST Emergency Emergency [address] [place] [phone] Pain (Primary Dx); Hemarthrosis of left knee; [...] 5:00 PM EDT Treatment Outpatient Rehabilitation - [address] [phone] Margaret Cesar, FINANCIAL INVESTMENT ADVISER 10/16/2024 5:00 PM EDT Treatment Outpatient [address] [phone] Margaret Cesar, FINANCIAL INVESTMENT ADVISER 10/19/2024 5:00 PM EDT Treatment Outpatient [address] [phone] Margaret Cesar, FINANCIAL INVESTMENT ADVISER 10/23/2024 5:00 PM EDT Treatment Outpatient Rehabilitation - [address] [phone] Margaret Cesar, FINANCIAL INVESTMENT ADVISER 10/26/2024 8:30 AM EDT Office Visit Orthopedics - [address] [phone] Niles Matamoros, [place] [address] [place], [place] 10/26/2024 5:00 PM EDT Treatment Outpatient Rehabilitation - [address] [phone] Margaret Cesar, FINANCIAL INVESTMENT ADVISER 11/06/2024 5:00 PM EDT Treatment Outpatient Rehabilitation - [address] [phone] Margaret Cesar, FINANCIAL INVESTMENT ADVISER 11/09/2024 5:00 PM EDT Treatment Outpatient Rehabilitation - [address] [phone] Rakan Posada, PT 10/02/2025 8:15 AM EDT Office Visit Pulmonolgy [facility] [address] [phone] Brittany Lora MD [address] [address] Health Maintenance Due Date Last Done Comments [...] JOINT ASPIRATION/INJECTION Routine 07/23/2024 11:14 PM EST IA ARTHROCENTESIS/ASPIRAT ION/INJECTION MAJOR JOINT/BURSA W/O U/S GUIDANCE [...] LAB HEMETOLOGY METHOD 07/24/2024 1:32 AM EST [facility] Body Fluid RBC 24,000 /mm3 LAB HEMETOLOGY METHOD 07/24/2024 1:32 AM EST [facility] Body Fluid Color Red 07/24/2024 1:32 AM EST [facility] Body Fluid Clarity Bloody 07/24/2024 1:32 AM EST [facility] Body Fluid Source Synovial 07/24/2024 1:32 AM EST [facility] Synovial Fluid Structure of left knee region / Unknown Non-blood Collection / Unknown 07/23/2024 11:20 PM EST 07/24/2024 12:05 AM EST Narrative [facility] - 07/24/2024 1:32 AM EST No reference ranges have been established for body fluids. Clinical correlation recommended. [facility] LAB BODY FLUIDS AND STOOL S ORDERABLES Final Result [facility] [address] [place] [address], * Culture body fluid with gram stain (07/23/2024 11:20 PM EST) Fluid Culture No growth at 3 days LAB MICROBIOLOGY METHOD 07/27/2024 10:30 AM EST [facility] Gram Stain Result Rare Polymorphonuclear leukocytes 07/27/2024 10:30 AM [facility] Gram Stain Result No Epithelial cells 07/27/2024 10:30 AM [facility] Gram Stain Result No organisms seen 07/27/2024 10:30 AM [facility] Synovial Fluid Structure of left knee region / Unknown Non-blood Collection / Unknown 07/23/2024 11:20 PM EST 07/24/2024 12:05 AM EST [facility] LAB MICROBIOLOGY - GENERA L ORDERABLES Final Result [facility] [address] [place] [address], * Differential body fluid (07/23/2024 11:20 PM EST) Fluid Neutrophils % 60 % LAB HEMETOLOGY METHOD 07/24/2024 1:32 AM [facility] Fluid Lymphocytes % 35 % LAB HEMETOLOGY METHOD 07/24/2024 1:32 AM [facility] Fluid Monocytes/Macro phages 4 % LAB HEMETOLOGY METHOD 07/24/2024 1:32 AM [facility] Fluid Eosinophils % 1 % LAB HEMETOLOGY METHOD 07/24/2024 1:32 AM [facility] Fluid Basophils % 0 % LAB HEMETOLOGY METHOD 07/24/2024 1:32 AM [facility] Fluid Other Cells % 0 % LAB HEMETOLOGY METHOD 07/24/2024 1:32 AM [facility] Synovial Fluid Structure of left knee region / Unknown Non-blood Collection / Unknown 07/23/2024 11:20 PM EST 07/24/2024 12:05 AM EST Narrative [facility] - 07/24/2024 1:32 AM EST No reference ranges have been established for body fluids. Clinical correlation recommended. S[facility] LAB BODY FLUIDS AND STOOL S ORDERABLES Final Result Performing Organization Address [facility]/ZIP Co de Phone Number [facility] [address] [place] [address], [place] [phone] * Crystal identification, body fluid (07/23/2024 11:20 PM EST) Crystals, Fluid No diagnostic crystals seen No diagnostic crystals seen 07/24/2024 1:12 AM EST [facility] Unspecified Body Fluid Non-blood Collection / Unknown 07/23/2024 11:20 PM EST 07/24/2024 12:05 AM EST [facility] LAB BODY FLUIDS AND STOOL S ORDERABLES Final Result Performing Organization Address [facility]/ZIP Co de Phone Number [facility] [address] [place] [address], [place] [phone] * IA ARTHROCENTESIS/ASPIRATION/INJECTION MAJOR JOINT/BURSA W/O U/S GUIDANCE, HC [...] result and pain ??Alternatives discussed: ??No treatment [place] protocol: ??Procedure explained and questions answered to [...] Laterality Modality Lower Extremities, Knee [facility] 07/24/2024 9:48 AM EST Impressions 07/24/2024 9:51 AM EST No fracture or dislocation. Mild osteoarthritis. There is a large suprapatellar joint effusion. Code 89679 -------- FINAL REPORT -------- Dictated By: Rafael Ariza Dictated Date: 07/24/2024 09:48 ET Assigned Physician: Rafael Ariza Reviewed and Electronically Signed By: Rafael Ariza Signed Date: 07/24/2024 09:51 ET Workstation ID: [id number] Transcribed By: Self Edit Transcribed Date: 07/24/2024 [...] There is a largesuprapatellar joint effusion. Code 52938 -------- FINAL REPORT -------- Dictated By: Rafael Ariza Dictated Date: 07/24/2024 09:48 ET Assigned Physician: Rafael Ariza Reviewed and Electronically Signed By: Rafael Ariza Signed Date: 07/24/2024 09:51 ET Workstation ID: [id number] Transcribed By: Self Edit Transcribed Date: 07/24/2024 09:50 ET us S[facility] IMG XR PROCEDURES Final R esult * (ABNORMAL) CBC auto differential (07/23/2024 10:04 PM EST) WBC 7.1 4.8 - 10.8 K/mcL LAB HEMETOLOGY METHOD 07/23/2024 10:46 PM [facility] RBC 4.60 3.80 - 4.80 M/mcL LAB HEMETOLOGY METHOD 07/23/2024 10:46 PM [facility] Hemoglobin 12.7 11.5 - 16.0 g/dL LAB HEMETOLOGY METHOD 07/23/2024 10:46 PM [facility] Hematocrit 40.0 35.0 - 47.0 % LAB HEMETOLOGY METHOD 07/23/2024 10:46 PM [facility] MCV 87.1 79.0 - 98.0 FL LAB HEMETOLOGY METHOD 07/23/2024 10:46 PM [facility] MCH 27.7 27.0 - 32.0 pcg LAB HEMETOLOGY METHOD 07/23/2024 10:46 PM [facility] MCHC 31.8(L) 32.0 - 37.0 g/dL LAB HEMETOLOGY METHOD 07/23/2024 10:46 PM [facility] RDW 13.5 11.0 - 15.0 % LAB HEMETOLOGY METHOD 07/23/2024 10:46 PM [facility] Platelets 287 130 - 400 K/mcL LAB HEMETOLOGY METHOD 07/23/2024 10:46 PM [facility] MPV 10.6 7.0 - 11.0 FL LAB HEMETOLOGY METHOD 07/23/2024 10:46 PM [facility] NRBC 0.0 <1.0 % LAB HEMETOLOGY METHOD 07/23/2024 10:46 PM [facility] NRBC Absolute 0.00 <0.10 K/mcL LAB HEMETOLOGY METHOD 07/23/2024 10:46 PM [facility] Neutrophils Relative 53.9 % LAB HEMETOLOGY METHOD 07/23/2024 10:46 PM [facility] Lymphocytes Relative 33.5 % LAB HEMETOLOGY METHOD 07/23/2024 10:46 PM [facility] Monocytes Relative 10.6 % LAB HEMETOLOGY METHOD 07/23/2024 10:46 PM [facility] Eosinophils Relative 1.0 % LAB HEMETOLOGY METHOD 07/23/2024 10:46 PM [facility] Basophils Relative 0.6 % LAB HEMETOLOGY METHOD 07/23/2024 10:46 PM [facility] Immature Granulocytes Relative 0.4 % LAB HEMETOLOGY METHOD 07/23/2024 10:46 PM EST [facility] Neutrophils Absolute 3.82 1.50 - 7.00 K/[facility] LAB HEMETOLOGY METHOD 07/23/2024 10:46 PM EST [facility] Lymphocytes Absolute 2.37 1.00 - 5.00 K/mcL LAB HEMETOLOGY METHOD 07/23/2024 10:46 PM EST [facility] Monocytes Absolute 0.75 0.20 - 1.00 K/[facility] LAB HEMETOLOGY METHOD 07/23/2024 10:46 PM EST [facility] Eosinophils Absolute 0.07 0.00 - 0.50 K/[facility] HEMETOLOGY METHOD 07/23/2024 10:46 PM EST [facility] Basophils Absolute 0.04 0.00 - 0.20 K/[facility] LAB HEMETOLOGY METHOD 07/23/2024 10:46 PM EST [facility] Immature Granulocytes Absolute 0.03 0.00 - 0.03 K/[facility] LAB HEMETOLOGY METHOD 07/23/2024 10:46 PM EST [facility] Blood Venous blood specimen / Unknown Venipuncture / Unknown 07/23/2024 10:04 PM EST 07/23/2024 10:37 PM EST us S[facility] LAB BLOOD ORDERABLES Katia l Result [facility] [address] [place] [address], * Uric acid (07/23/2024 10:04 PM EST) Uric Acid 3.1 3.1 - 7.8 mg/dL LAB CHEMISTRY METHOD 07/23/2024 11:04 PM EST [facility] Blood Venous blood specimen / Unknown Venipuncture / Unknown 07/23/2024 10:04 PM EST 07/23/2024 10:37 PM EST us Sohail [facility]ST[facility] LAB BLOOD ORDERABLES Katia l Result [facility] [address] [place] [address], [place] [phone] * Basic metabolic panel (07/23/2024 10:04 PM EST) Sodium 139 133 - 145 mmol/L LAB CHEMISTRY METHOD 07/23/2024 11:04 PM [facility] Potassium 3.7 3.5 - 5.5 mmol/L LAB CHEMISTRY METHOD 07/23/2024 11:04 PM [facility] Chloride 109 96 - 110 mmol/L LAB CHEMISTRY METHOD 07/23/2024 11:04 PM [facility] CO2 27 21 - 32 mmol/L LAB CHEMISTRY METHOD 07/23/2024 11:04 PM [facility] Anion Gap 3 3 - 11 LAB CHEMISTRY METHOD 07/23/2024 11:04 PM [facility] Glucose 89 70 - 100 mg/dL LAB CHEMISTRY METHOD 07/23/2024 11:04 PM [facility] BUN 20 5 - 25 mg/dL LAB CHEMISTRY METHOD 07/23/2024 11:04 PM [facility] Creatinine 0.69 0.50 - 1.10 mg/dL LAB CHEMISTRY METHOD 07/23/2024 11:04 PM [facility] eGFR 104 >=60 mL/min/1. 73m2 LAB CHEMISTRY METHOD 07/23/2024 11:04 PM [facility] Comment:Calculation based on the??Chronic Kidney Disease Epidemiology Collaboration (CKD-EPI) equation refit??without adjustment for race. BUN/Creatinine Ratio 29.0 LAB CHEMISTRY METHOD 07/23/2024 11:04 PM [facility] Calcium 9.5 8.5 - 10.5 mg/dL LAB CHEMISTRY METHOD 07/23/2024 11:04 PM EST [facility] Blood Venous blood specimen / Unknown Venipuncture / Unknown 07/23/2024 10:04 PM EST 07/23/2024 10:37 PM EST us Sohail [facility]ST[facility] LAB BLOOD ORDERABLES Katia l Result [facility] [address] [place] [address], [place] [phone] * Vascular US Duplex Lower Extremity Venous [...] Signed Date: 07/24/2024 03:41 ET Workstation ID: [id number] Transcribed By: Self Edit Transcribed Date: 07/24/2024 [...] Signed Date: 07/24/2024 03:41 ET Workstation ID: [id number] Transcribed By: Self Edit Transcribed Date: 07/24/2024 [...] Result * (ABNORMAL) Lipid panel (08/12/2022) Pathologist [facility] LDL/HDL Ratio 3 0 - 4 Triglycerides 133 0 - 150 mg/dL Cholesterol 200 0 - 200 mg/dL HDL 63 >=40 mg/dL LDL Cholesterol 111(A) 0 - 100 mg/dL Blood Venous blood specimen / Unknown Historical Provider LAB BLOOD ORDERABLES Katia l Result * Colonoscopy (04/23/2022) Pathologist Count includes the [facility] Colonoscopy No interpretation , abstracted Anatomical Region Laterality Modality Other Historical Provider HEALTH MAINTENANCE Final Result * Hepatitis C Screening (05/03/2020) Pathologist Count includes the [facility] Hepatitis C Screening abstracted Historical Provider HEALTH MAINTENANCE Final Result from Last 3 Months or Most Recently Relevant to Health Maintenance Insurance * Guarantor: Deanne Bush Account Type Relation to Patient Date of Phone Billing Address Personal/Family Self 1970 [phone] (Work) [address] [place] [address] [employer] [facility] Care Teams Engineering Analyst Relationship Specialty Start Date End Date Haley Ortega MD [address] [place] [phone] PCP - General Internal Medicine 12/15/21
--- NOTE | 2024-10-12 08:18 | A.OFFVIS_ITS ---
Vital Signs 10/12/24 08:23 Height 5 ft 6 in Weight 220 lb 7.396 oz BMI 35.6 BP 124/74 Blood Pressure Location Rt brachial Position Sitting Pulse 87 Pulse Source Pulse Oximeter Pulse Oximetry (%) 98 Oxygen Delivery Method Room Air Intake Visit Reasons: RA Intake Note: Patient presents for RA follow up. Allergies No Known Allergies Allergy (Verified 10/12/24 08:21) Medication List - Last Reconciled 10/12/24 by Rosa M Miller MD adalimumab (Humira(CF) Pen) 40 mg (0.4 mL) subcut Q2W 90 days albuterol sulfate 90 mcg/actuation 2 inhalations inhalation Q6H PRN amlodipine 5 mg PO DAILY ergocalciferol (vitamin D2) 1,250 mcg PO QWEEK fesoterodine ER 8 mg PO DAILY fluticasone propionate 110 mcg/actuation (Flovent HFA) 2 puffs inhalation BID folic acid 1 mg PO DAILY ibuprofen 600 mg PO Q8H PRN methotrexate sodium 10 mg (4 x 2.5 mg) PO QWEEK omeprazole 20 mg PO DAILY HPI Comments Details: Patient is a 54-year-old female with asthma, hypertension, GERD and seropositive rheumatoid arthritis here today for follow up Interval History: Patient last seen 06/06/[address] March. At that time she was following up for her rheumatoid arthritis on Humira 40 mg every other week and methotrexate 15 mg weekly with folic acid 1 mg daily. Continued to complain of intermittent flare-ups and morning stiffness lasting an hour. exam did not show any evidence of synovits and her symptoms were attributed to degenerative joint disease. Today, Patient reports she is overall the same. Gets intermittent flares of her joints especially after a long day at work where she has to write or type a lot Went to the ED in June for left swollen knee. Found to have a Payan's cyst. Currently doing PT Rheumatologic History: Onset 03/18: ++ RF, ++TRINO anti DNA negative. Methotrexate started 08/17; Enbrel added late October Enbrel losing effectiveness stopped 2021; Humira started 2022 The patient presents for evaluation of her rheumatoid arthritis. I had last seen her at [facility] in March. At that point she was on you Humira 40 mg every 2 weeks, folic acid 1 mg daily, and methotrexate 20 mg weekly. For the most part in the past when she was able to take her medicine the joints did much better. She does supplement the her medicines with ibuprofen 600 mg t.i.d. However she had some problems this year. In June she developed COVID so had to hold the Humira and methotrexate, perhaps for about 2 weeks. There was a bit if it more increased pain in July and August but that improved in September when she got back on the medications but she ran out of the Humira at the end of September. Also in mid October she developed abdominal pain and was found to have a ruptured appendix. This required laparoscopic surgery. She did well with that. She also hgad run out of her Humira in September. She was unable to get refills through her primary care team. Areas of pain today include the MCPs, PIP joints, neck, and shoulders. She apparently mostly had fatigue and arthralgias with the COVID and minimal respiratory symptoms. She had been previously vaccinated. Current Rheumatology Medication(s): Humira 40mg SC every 2 weeks Methotrexate 15mg PO weekly Folic 1mg PO PFSH Medical History Hypertension Fatigue Vitamin D deficiency Long-term use of immunosuppressant medication History of COVID-19 Hypertension Thyroid nodule Malignant neoplasm cervix Obstructive sleep apnea Seropositive rheumatoid arthritis Surgical History History of laparoscopic appendectomy Family History Mother Rheumatoid arthritis Social History Household Members: Significant Other Housing: House Are you a primary residential care facility manager to a significant other at home: No Do you presently have visiting nurse or other home services: No 75 years or older and lives alone: No Alcohol intake: current Alcohol intake frequency: holidays/special occasions only Alcohol type: wine Patient Tobacco Use Status: Never used Tobacco e-Cigarette/Vaping Use: Never Used service: No Current occupational status: employed 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 [employer] Details: Review of Systems Constitutional: Denies fever, chills, weight loss ENT: Denies vision changes, eye pain or eye redness, dental caries, dry mouth GI: Denies nausea, vomiting, diarrhea, abdominal pain, change in BM Pulm: Denies SOB, ZULETA, hemoptysis, wheezing Cards: Denies chest pain, palpitations Skin: Denies Raynaud's, rash, nail changes, photosensitivity, RESTAURANT AREA MANAGER: Denies headaches, weakness, paresthesias, recurrent falls MSK: as per HPI All other systems reviewed and are unremarkable except noted above Physical Exam Vital Signs: Last Vital Signs Pulse 87 10/12/24 08:23 BP 124/74 10/12/24 08:23 Pulse Ox 98 10/12/24 08:23 Oxygen Delivery Method Room Air 10/12/24 08:23 BMI result Body Mass Index 35.6 Vital signs reviewed Physical Examination CONSTITUITIONAL Patient alert and cooperative. Well appearing and in no apparent painful distre ss HEENT Conjunctiva and sclera clear. Pupils equal round and reactive to light. No lymphadenopathy. CHEST/RESPIRATORY SYSTEM Normal respiratory effort and able to speak in complete sentences. Clear to auscultation bilaterally. No crackles, rales, rhonchi, wheezes heard. CARDIAC SYSTEM Regular rate and rhythm. S1 and S2 heard no murmurs. Radial pulses intact bilaterally MSK Hands: Able to make a fist. Synovial hypertrophy noted to the 2nd-4th MCPs bilaterally. No TTP of the MCPs or PIPs. reducible ulnar deviation bilaterally Wrists: Full range of motion at the wrists without pain. No tenderness to palpation or synovitis noted to the wrists. Elbows: Full range of motion without pain. No tenderness, weakness, swelling, increased warmth or erythema. RA nodules noted to the left elbow Shoulders: Full range of active range of motion without pain. No tenderness, weakness, swelling, increased warmth or erythema. Knees: Full range of motion. No tenderness, swelling, increased warmth or erythema.?No effusion or crepitations Ankles: Full range of motion. No tenderness, increased warmth or erythema.?Mild swelling noted Feet: Negative squeeze test. No tenderness to palpation or swelling of the MTPs. Tender points:?No tenderness to palpation of the bilateral trapezius, supraspinatus, greater trochanters, anterior costochondral junctions, bilateral gluteal areas, bilateral suboccipital muscle insertions SKIN Skin intact without rashes. Results Reviewed Results Reviewed: Laboratory Tests 06/06/24 10/10/24 10/10/24 09:35 08:35 08:50 WBC 4.7 L RBC 4.47 Hgb 12.8 Hct 39.1 Plt Count 211 ESR 48 H Sodium 140 Potassium 4.0 Chloride 108 Carbon Dioxide 25 BUN 16 Creatinine 0.62 AST 28 27 ALT 38 H 44 H C-Reactive Protein 0.86 H 0.70 H Immunology labs 06/06/24 09:35 Cycl Citrul Peptide IgG >250 H Infectious serologies 06/06/24 09:35 Hepatitis A IgM Ab Nonreactive Hep Bs Antigen Negative Hep Bs Antibody REACTIVE Hep B Core Total Ab Nonreactive Hepatitis C Ab (EIA) Nonreactive TB Test (T-Spot) Com Negative Assessment & Plan Assessment & Plan (1) Seropositive rheumatoid arthritis: Comment: Onset 03/18: ++ RF, ++TRINO anti DNA negative. Methotrexate started 08/17; Enbrel added late October Enbrel losing effectiveness stopped 2021; Humira started 2022 Code(s): M05.9 - Rheumatoid arthritis with rheumatoid factor, unspecified Category: Medical Plan: #RA Patient is a 54-year-old female with seropositive deforming nodular rheumatoid arthritis here today for follow up. patient is currently in remission on current regimen. Her current joint complaints are likely secondary to degenerative joint disease Plan - Humira 40mg SC every 2 weeks - Methotrexate 10mg PO weekly - Folic acid 1mg daily - RTC 4 months - Labs before visit: CBC, CMP, ESR, CRP (2) Generalized osteoarthritis: Code(s): M15.9 - Polyosteoarthritis, unspecified Plan: #Polyarticular OA patient with polyarticular osteoarthritis involving several joints including hands and knees. Discussed treatment recommendations for hands: Paraffin wax bath twice a day with diclofenac topical gel 4 times a day. For her knees she can continue physical therapy if there is return of swelling she is to contact the office Plan - parrafin wax bath - topical diclofenac gel 1% - Continue PT (3) Encounter for methotrexate monitoring: Code(s): Z51.81 - Encounter for therapeutic drug level monitoring; Z79.631 - predatory animal exterminator (c urrent) use of antimetabolite agent Plan: #Long-term Current Use of Methotrexate Discussed with patient the benefits and risks of methotrexate for managing their rheumatic condition Benefits include reduced pain, reduced mortality, maintenance of remission and reduction of flares Risks include oral ulcers, photosensitivity, hepatotoxicity, hematologic toxicity, pneumonitis, flu-like symptoms (especially day after administration), nodulosis, lymphomas ? Limit alcohol and avoid Bactrim ? Monitoring: CBC, BMP, LFTs every 3-4 months and hepatitis serologies as needed (4) Encounter for monitoring of adalimumab therapy: Code(s): Z51.81 - Encounter for therapeutic drug level monitoring; Z79.620 - predatory animal exterminator (current) use of immunosuppressive biologic Plan: #Long-term Use of TNF Inhibitors: Humira Discussed with the patient the benefits and risks of TNF inhibitors for the management of the rheumatic condition Benefits include reduce pain, maintenance of remission and reduction of flares as well as progression of the disease Risks include injection sites/infusion reactions, serious infections (such as bacterial infections, opportunistic infections), malignancy, delaminating syndromes, autoimmune phenomena, CHF exacerbations, palmar plantar psoriasis and cytopenias Recommended rotating injection sites, and holding medication during and for up to 1 week after resolution of a febrile illness or open skin wound Plan I spent 30 minutes reviewing the record and labs, taking a history, examining the patient, discussing the treatment plan, ordering diagnostic work up and documenting in the medical record Orders: Orders Comprehensive Met. Panel 4 Months M05.9 - Rheumatoid arthritis with rheumatoid factor, unspecified Complete Blood Count Auto Diff 4 Months M05.9 - Rheumatoid arthritis with rheumatoid factor, unspecified C Reactive Protein 4 Months M05.9 - Rheumatoid arthritis with rheumatoid factor, unspecified Erythrocyte Sedimentation Rate 4 Months M05.9 - Rheumatoid arthritis with rheumatoid factor, unspecified Vitamin D 25-OH Total 4 Months E55.9 - Vitamin D deficiency, unspecified Medications: New diclofenac sodium 1% (Arthritis Pain (diclofenac)) apply to bilateral hands 4 grams topical QID 100 grams 5RF M15.9 - Polyosteoarthritis, unspecified Changed From methotrexate sodium 10 mg (4 x 2.5 mg) PO QWEEK 72 tabs 0RF M05.9 - Rheumatoid arthritis with rheumatoid factor, unspecified To methotrexate sodium 10 mg (4 x 2.5 mg) PO QWEEK 90 days 52 tabs 1RF M05.9 - Rheumatoid arthritis with rheumatoid factor, unspecified Refilled folic acid 1 mg PO DAILY 90 tabs 1RF M05.9 - Rheumatoid arthritis with rheumatoid factor, unspecified adalimumab (Humira(CF) Pen) 40 mg (0.4 mL) subcut Q2W 90 days 2 ea 1RF M05.9 - Rheumatoid arthritis with rheumatoid factor, unspecified Coding Level of Care Code Est Pt Level 4 (58908) Complex EM visit Add On G2211 Diagnoses Seropositive rheumatoid arthritis M05.9 Generalized osteoarthritis M15.9 Encounter for methotrexate monitoring Z51.81; Z79.631 Encounter for monitoring of adalimumab therapy Z51.81; Z79.620
[2024-10-12 08:23] VITALS: BP 124/74; PULSE 87; O2SAT 98; BMI 35.6
== END 2024-10-12 08:51 | disposition home or self-care (01) ==
LOC: HO.RHE 07:51
PROVIDERS: PCP Physician Assistant; Visit Provider Student in an Organized Health Care Education/Training Program
DX: M05.79 Rheumatoid arthritis with rheumatoid factor of multiple sites without organ or systems involvement (principal); M15.9 Polyosteoarthritis, unspecified; Z51.81 Encounter for therapeutic drug level monitoring; Z79.631 Long term (current) use of antimetabolite agent; Z79.620 Long term (current) use of immunosuppressive biologic
CPT/HCPCS: 99214

== ENCOUNTER → 2024-10-12 07:51 | Outpatient (BNVA) | payer OTHER, SELFPAY | PROVIDERS: PCP Physician Assistant; Visit Provider Student in an Organized Health Care Education/Training Program ==

== ENCOUNTER 2025-02-06 15:48 | Outpatient (REF) | payer OTHER, SELFPAY ==
[2025-02-06 16:19] LABS: MANUAL DIFF FLAG NO
[2025-02-06 16:29] LABS: Hematocrit 40.1 % (37.0-47.0); Hemoglobin 13.2 g/dl (12.0-16.0); Imm Gran Abs Auto 0.01 X10*3/uL (0.00-0.03); Imm Gran Pct Auto 0.2 % (0.0-0.4); Lymphocytes Absolute Auto 2.4 X10*3/uL (1.2-4.9); Mean Corpuscular HGB Conc 32.9 g/dl (31.0-35.0); Mean Corpuscular Hemoglobin 28.9 pg (27.0-33.0); Mean Corpuscular Volume 87.7 fL (80.0-98.0); NRBC Abs Auto 0.000 X10*3/uL (0.0-0.012); NRBC Pct Auto 0.0 /100WBC (0.0-0.2); Platelet Count 218 X10*3/uL (160-400); Red Blood Count 4.57 X10*6/uL (4.20-5.50); White Blood Count 5.7 X10*3/uL (4.8-10.8)
--- OUTSIDE RECORDS SUMMARY | 2025-02-06 16:41 | XMS_ITS | Clinical Summary ---
Author Organization [facility] Address [address] [place] [phone] Phone Care Team Providers Care Pad Tufter Name Role Phone Haley Ortega MD Primary Care Prov ider Allergies No known active allergies Medications folic acid (FOLVITE) 1 mg tabletIndicati ons:Hospital discharge follow-up Take 1 tablet (1,000 mcg total) by mouth 1 (one) time each day. 90 tablet 1 5 Active cholecalcifero l (Vitamin D3) 50 mcg (2,000 unit) capsuleIndicat ions:vitamin D deficiency Take 1 capsule (2,000 Units total) by mouth 1 (one) time each day. 90 capsule 1 5 Active omeprazole (PriLOSEC) 20 mg [...] the skin every 14 (fourteen) days. Active amLODIPine (NORVASC) 10 mg tablet Take 1 tablet (10 mg total) by mouth 1 (one) time each day. 90 tablet 5 Active amLODIPine (NORVASC) 5 mg tablet TAKE 1 TABLET BY MOUTH DAILY 90 tablet 1 5 01/10/20 25 Discontinued Active Problems Problem Noted Date Diagnosed Date Renal cyst, right 08/01/2021 Hypertension 04/16/2021 Obstructive sleep apnea 06/10/2020 Overview (05/08/2024): [facility] Home Sleep Apnea Test: Date 06/02/2020; [...] thyroid nodules 05/01/2020 Malignant neoplasm of cervix ([facility] V24, [facility] V28) 07/13/2017 Overview (05/08/2024): Positive cone [...] time each day. Seropositive rheumatoid arth ritis ([facility] V24, [facility] V28) 08/09/2012 Overview (05/08/2024): Onset [...] Encounters Date Type Department Care Team Description 01/29/2025 1:30 PM EDT Ancillary Procedure [facility] [address] [facility] [address] [place] [phone] Chest discomfort; Palpitations; Fatigue, unspecified type 01/09/2025 8:00 AM EDT Office Visit Adult Medicine [facility] [address] [place] [phone] Dionna Gonzalez PA Chest discomfort (Primary Dx); Palpitations; Fatigue, unspecified type; Elevated blood pressure reading; Primary hypertension; Family history of coronary artery disease in father from Last 3 Months Immunizations Name Administration [...] drink = 0.6 oz pur e alcohol) Housing Instability Answer Date Recorde d Are you worried that in the next 2 months you may not have stable housing? No 01/09/2025 Food Access & Nutrition Answer Date Rec orded Do you have access to a vari ety of food including fruits and vegetables? Yes 01/09/2025 Health Literacy Answer Date Recorded How often do you need to hav e someone help you when you read instructions, pamphlets, or other written material from your doctor or pharmacy? Never 01/09/2025 Caregiver: How often do you need to have someone help you when you read instructions, pamphlets, or other written material from your doctor or pharmacy? Not on file 01/09/2025 Financial Risk Answer Date Recorded How hard is it for you to pa y for the very basics like food, housing, medical care, and air conditioning / heating? Not very hard 01/09/2025 Transportation Answer Date Recorded Has the lack of transportati on kept you from meetings, work, or from getting things needed for daily living? No Has the lack of transportati on kept you from medical appointments or from getting medications? No 01/09/2025 Social Isolation Answer Date Recorded How often do you feel lonely or isolated from th ose around you? Never 01/09/2025 Food Risk Answer Date Recorded Within the past 12 months we worried whether our food would run out before we got money to buy more. Never true 01/09/2025 Within the past 12 months th e food we bought just didn't last and we didn't have money to get more. Never true 01/09/2025 Dependent Care Answer Date Recorded Do you need help finding or paying for care for your loved ones. For example, child care center assistant director or elderly care for an older adult? No 01/09/2025 Education Answer Date Recorded Do you think completing more education or training, like finishing a GED, going to college, or learning a trade, would be helpful for you? No 01/09/2025 Employment and Income Answer Date Recor ded During the last four weeks, have you been actively looking for work? No 01/09/2025 Living Situation Answer Date Recorded What is your living situation? 0 01/09/2025 Comments No Sex and Gender Information Value Date Recorded Sex Assigned at Female 07/23/2024 10:20 PM EST Legal Sex Female 8:30 AM EST Gender Identity Female 07/23/2024 10:20 PM EST Sexual Orientation Choose not to disclose 2024 10:20 PM EST Obstetrics History Last Filed Vital Signs Vital Sign Reading Time Taken Comments Blood Pressure 155/99 01/09/2025 8:18 AM EDT Pulse 82 01/09/2025 8:18 AM EDT Temperature 35.9 C (96.7 F) 01/09/2025 8:17 AM EDT Respiratory Rate 15 01/09/2025 8:17 AM EDT Oxygen Saturation 97% 01/09/2025 8:17 AM EDT Inhaled Oxygen Concentration - - Weight 102 kg (225 lb) 01/29/2025 2:17 PM EDT Height 167.6 cm (5' 6 ) 01/29/2025 2:17 PM EDT Body Mass Index 36.32 01/29/2025 2:17 PM EDT Plan of Treatment Upcoming Encounters Date Type Department Care Team (Late st Contact Info) Description 02/09/2025 8:00 AM EDT Office Visit Adult Medicine [address] [phone] Haley Ortega MD [address] [place] [address] 10/02/2025 8:15 AM EDT Office Visit Pulmonolgy - [place] [address] [facility] [address] [place] [address] Brittany Lora MD [address] [place] [address] Health Maintenance Due Date Last Done Comments Hepatitis B Vaccines (1 of 3 - 19+ 3-dose series) 1990 Zoster Vaccines (1 of 2) 1990 Cervical Cancer Screening: HPV 02/05/1992 Pneumococcal Vaccine: 50+ Years (2 of 2 - PCV) 2021 07/13/2013, 04/11/2009 HIV Screening 05/16/2022 Influenza Vaccine (#1) 2025 4, 03/11/2021, 03/17/2016, Additional history exists Breast Cancer Screening 07/12/2025 07/12/19 24, 07/07/2022, 07/02/2021 Hypertension/CHF/CAD Annual BMP Blood Test 01/09/2026 01/09/2025, 07/23/2024, 08/12/2022 Social Influencers of Health Screening 01/09/2026 01/09/2025 Cholesterol Screening (Lipid Panel) 08/13/2027 08/12/2022 Colorectal Cancer Screening: Colonoscopy 04/24/2032 04/23/2022 DTaP,Tdap,and Td Vaccines (3 - Td or Tdap) 01/06/2033 01/06/2023, 08/17/2012 Hepatitis C Screening Completed 05/03/2020 COVID-19 Vaccine Discontinued 08/02/2020, 07/05/2020 Depression Screening Completed 01/09/2025 HIB Vaccines Aged Out No longer eligi [...] Procedure Name Priority Date/Time Associated Diagnosis Comments STRESS ECHOCARDIOGRAM EXERCISE Routine 01/29/2025 2:17 PM EDT Chest discomfort Palpitations Fatigue, unspecified type Procedure Note - Roby Lorenzana MD / Jacqueline [place] NP - 01/29/2025 2:17 PM EDTThis note is in progress. Stress ECG was normal. Exercise stress test was performed. Exercise capacity was average.Normal blood pressure response. Findings Study Details Overall the study quality was adequate. Stress Findings A Kerwin protocol stress test was performed. Overall, the patient's exercise capacity was average. The patient reached stage 3. Total stress time was 6 min and 1 sec. The test was stopped because the patient experienced shortness of breath. The patient achieved the target heart rate. The patient's hemodynamic response was adequate for diagnosis. Blood pressure demonstrated a normal response. Heart rate demonstrated a normal response. Onset of symptoms occurred at Stage 2 of the protocol. The patient reported shortness of breath during the stress test. ECG 54-year-old female with past medical history of obesity, hypertension, family history of premature coronary disease who presents today for stress echocardiogram to rule out ischemia in the setting of chest discomfort. Her last dose of amlodipine was yesterday. The ECG shows sinus rhythm. There were no arrhythmias during stress. There is no significant ST abnormalities during stress. There were no arrhythmias during recovery. The result of the stress ECG was negative for ischemia. CBC WITH AUTO DIFFERENTIAL Routine 01/09/2025 8:53 AM EDT Palpitations Fatigue, unspecified type THYROID STIMULATING HORMONE WITH REFLEX TO FREE T4 AND FREE T3 Routine 01/09/2025 8:53 AM EDT Palpitations Fatigue, unspecified type FERRITIN Routine 01/09/2025 8:53 AM EDT Palpitations Fatigue, unspecified type FOLATE Routine 01/09/2025 8:53 AM EDT Palpitations Fatigue, unspecified type IRON AND TIBC Routine 01/09/2025 8:53 AM EDT Palpitations Fatigue, unspecified type VITAMIN B12 Routine 01/09/2025 8:53 AM EDT Palpitations Fatigue, unspecified type VITAMIN D 25 HYDROXY Routine 01/09/2025 8:53 AM EDT Palpitations Fatigue, unspecified type COMPREHENSIVE METABOLIC PANEL Routine 01/09/2025 8:53 AM EDT Palpitations Fatigue, unspecified type CBC AND DIFFERENTIAL Routine 01/09/2025 8:53 AM EDT Palpitations Fatigue, unspecified type ECG 12-LEAD Routine 01/09/2025 8:45 AM EDT Chest discomfort Palpitations Fatigue, unspecified type SCREENING MAMMOGRAPHY BI 2-VIEW BREAST INC CAD Routine 07/12/2023 8:37 AM EST Encounter for screening mammogram for malignant neoplasm of breast LIPID PANEL Routine 08/12/2022 COLONOSCOPY Routine 04/23/2022 HEPATITIS C SCREENING Routine 05/03/2020 from Last 3 Months or Most Recently Relevant to Health Maintenance Results * Thyroid stimulating hormone with reflex to free t4 and free t3 (01/09/2025 8:53 AM EDT) Pathologist [facility] TSH 0.92 0.40 - 4.00 mcIU/mL LAB CHEMISTRY METHOD 01/09/2025 2:22 PM EDT [facility] Blood Venous blood specimen / Unknown Venipuncture / Unknown 01/09/2025 8:53 AM EDT 01/09/2025 8:53 AM EDT Dionna JOHNSTON LAB BLOOD ORDERABLES Final Resu lt [facility] [address] [place] [address], * (ABNORMAL) CBC auto differential (01/09/2025 8:53 AM EDT) [facility] WBC 4.5(L) 4.8 - 10.8 K/mcL LAB HEMETOLOGY METHOD 01/09/2025 10:07 AM EDT [facility] RBC 4.40 3.80 - 4.80 M/mcL LAB HEMETOLOGY METHOD 01/09/2025 10:07 AM EDT [facility] Hemoglobin 12.6 11.5 - 16.0 g/dL LAB HEMETOLOGY METHOD 01/09/2025 10:07 AM EDT [facility] Hematocrit 38.1 35.0 - 47.0 % LAB HEMETOLOGY METHOD 01/09/2025 10:07 [facility] MCV 87.2 79.0 - 98.0 FL LAB HEMETOLOGY METHOD 01/09/2025 10:07 AM EDT [facility] MCH 28.8 27.0 - 32.0 pcg LAB HEMETOLOGY METHOD 01/09/2025 10:07 AM [facility] MCHC 33.1 32.0 - 37.0 g/dL LAB HEMETOLOGY METHOD 01/09/2025 10:07 AM [facility] RDW 13.7 11.0 - 15.0 % LAB HEMETOLOGY METHOD 01/09/2025 10:07 AM [facility] Platelets 207 130 - 400 K/mcL LAB HEMETOLOGY METHOD 01/09/2025 10:07 AM [facility] MPV 10.7 7.0 - 11.0 FL LAB HEMETOLOGY METHOD 01/09/2025 10:07 AM [facility] NRBC 0.0 <1.0 % LAB HEMETOLOGY METHOD 01/09/2025 10:07 AM [facility] NRBC Absolute 0.00 <0.10 K/mcL LAB HEMETOLOGY METHOD 01/09/2025 10:07 AM [facility] Neutrophils Relative 53.3 % LAB HEMETOLOGY METHOD 01/09/2025 10:07 AM [facility] Lymphocytes Relative 33.2 % LAB HEMETOLOGY METHOD 01/09/2025 10:07 AM [facility] Monocytes Relative 10.0 % LAB HEMETOLOGY METHOD 01/09/2025 10:07 AM [facility] Eosinophils Relative 2.4 % LAB HEMETOLOGY METHOD 01/09/2025 10:07 AM [facility] Basophils Relative 0.7 % LAB HEMETOLOGY METHOD 01/09/2025 10:07 AM [facility] Immature Granulocytes Relative 0.4 % LAB HEMETOLOGY METHOD 01/09/2025 10:07 AM [facility] Neutrophils Absolute 2.41 1.50 - 7.00 K/mcL LAB HEMETOLOGY METHOD 01/09/2025 10:07 AM EDT [facility] Lymphocytes Absolute 1.50 1.00 - 5.00 K/mcL LAB HEMETOLOGY METHOD 01/09/2025 10:07 AM EDT [facility] Monocytes Absolute 0.45 0.20 - 1.00 K/mcL LAB HEMETOLOGY METHOD 01/09/2025 10:07 AM EDT [facility] Eosinophils Absolute 0.11 0.00 - 0.50 K/[facility] LAB HEMETOLOGY METHOD 01/09/2025 10:07 AM EDT [facility] Basophils Absolute 0.03 0.00 - 0.20 K/mcL LAB HEMETOLOGY METHOD 01/09/2025 10:07 AM [facility] Immature Granulocytes Absolute 0.02 0.00 - 0.03 K/mcL LAB HEMETOLOGY METHOD 01/09/2025 10:07 AM T [facility] Blood Venous blood specimen / Unknown Venipuncture / Unknown 01/09/2025 8:53 AM EDT 01/09/2025 8:53 AM EDT Dionna JOHNSTON LAB BLOOD ORDERABLES Final Resu lt [facility] [address] [place] [address], * Iron and TIBC (01/09/2025 8:53 AM EDT) Iron 49 40 - 150 mcg/dL LAB CHEMISTRY METHOD 01/09/2025 1:43 PM EDT [facility] TIBC 320 250 - 450 mcg/dL LAB CHEMISTRY METHOD 01/09/2025 1:43 PM EDT [facility] Iron Saturation 15 15 - 50 % LAB CHEMISTRY METHOD 01/09/2025 1:43 PM EDT [facility] Blood Venous blood specimen / Unknown Venipuncture / Unknown 01/09/2025 8:53 AM EDT 01/09/2025 8:53 AM EDT Dionna JOHNSTON LAB BLOOD ORDERABLES Final Resu lt Performing Organization Address City/[facility]/ZIP Co de Phone Number [facility] [address] [place] [address], [place] [phone] * Vitamin D 25 hydroxy (01/09/2025 8:53 AM EDT) Vit D, 25-Hydroxy 41.1 30.0 - 80.0 ng/mL LAB CHEMISTRY METHOD 01/09/2025 2:22 PM EDT [facility] Blood Venous blood specimen / Unknown Venipuncture / Unknown 01/09/2025 8:53 AM EDT 01/09/2025 8:53 AM EDT Dionna JOHNSTON LAB BLOOD ORDERABLES Final Resu lt Performing Organization Address [facility]/ZIP Co de Phone Number [facility] [address] [place] [address], [place] [phone] * (ABNORMAL) Folate (01/09/2025 8:53 AM EDT) Folate >20.0(H) 2.8 - 17.0 ng/ml LAB CHEMISTRY METHOD 01/09/2025 1:43 PM EDT [facility] Blood Venous blood specimen / Unknown Venipuncture / Unknown 01/09/2025 8:53 AM EDT 01/09/2025 8:53 AM EDT Dionna JOHNSTON LAB BLOOD ORDERABLES Final Resu lt Performing Organization Address City/[facility]/ZIP Co de Phone Number [facility] [address] [place] [address], [place] [phone] * Ferritin (01/09/2025 8:53 AM EDT) [facility] Ferritin 72 8 - 252 ng/mL LAB CHEMISTRY METHOD 01/09/2025 1:43 PM EDT [facility] Blood Venous blood specimen / Unknown Venipuncture / Unknown 01/09/2025 8:53 AM EDT 01/09/2025 8:53 AM EDT Dionna JOHNSTON LAB BLOOD ORDERABLES Final Resu lt Performing Organization Address City/[facility]/ZIP Co de Phone Number [facility] [address] [place] [address], [place] [phone] * Vitamin B12 (01/09/2025 8:53 AM EDT) [facility] Vitamin B-12 352 250 - 900 pcg/mL LAB CHEMISTRY METHOD 01/09/2025 1:43 PM EDT [facility] Blood Venous blood specimen / Unknown Venipuncture / Unknown 01/09/2025 8:53 AM EDT 01/09/2025 8:53 AM EDT Dionna JOHNSTON LAB BLOOD ORDERABLES Final Resu lt [facility] [address] [place] [address], [place] [phone] * (ABNORMAL) Comprehensive metabolic panel (01/09/2025 8:53 AM EDT) [facility] Sodium 140 133 - 145 mmol/L LAB CHEMISTRY METHOD 01/09/2025 1:43 PM EDT [facility] Potassium 3.9 3.5 - 5.5 mmol/L LAB CHEMISTRY METHOD 01/09/2025 1:43 PM EDT [facility] Chloride 109 96 - 110 mmol/L LAB CHEMISTRY METHOD 01/09/2025 1:43 PM [facility] CO2 24 21 - 32 mmol/L LAB CHEMISTRY METHOD 01/09/2025 1:43 PM [facility] Anion Gap 7 3 - 11 LAB CHEMISTRY METHOD 01/09/2025 1:43 PM [facility] Glucose 91 70 - 100 mg/dL LAB CHEMISTRY METHOD 01/09/2025 1:43 PM [facility] BUN 14 5 - 25 mg/dL LAB CHEMISTRY METHOD 01/09/2025 1:43 PM [facility] Creatinine 0.60 0.50 - 1.10 mg/dL LAB CHEMISTRY METHOD 01/09/2025 1:43 PM [facility] eGFR 107 >=60 mL/min/1. 73m2 LAB CHEMISTRY METHOD 01/09/2025 1:43 PM [facility] Comment:Calculation based on the Chronic Kidney Disease Epidemiology Collaboration (CKD-EPI) equation refit without adjustment for race. BUN/Creatinine Ratio 23.3 LAB CHEMISTRY METHOD 01/09/2025 1:43 PM [facility] Calcium 9.3 8.5 - 10.5 mg/dL LAB CHEMISTRY METHOD 01/09/2025 1:43 PM [facility] AST (SGOT) 6(L) 10 - 42 unit/L LAB CHEMISTRY METHOD 01/09/2025 1:43 PM [facility] ALT (SGPT) 37 10 - 60 unit/L LAB CHEMISTRY METHOD 01/09/2025 1:43 PM [facility] Alkaline Phosphatase 106 42 - 121 unit/L LAB CHEMISTRY METHOD 01/09/2025 1:43 PM [facility] Total Protein 7.2 6.0 - 8.0 g/dL LAB CHEMISTRY METHOD 01/09/2025 1:43 PM [facility] Albumin 3.5 3.2 - 5.0 g/dL LAB CHEMISTRY METHOD 01/09/2025 1:43 PM EDT [facility] Total Bilirubin 0.4 0.0 - 1.4 mg/dL LAB CHEMISTRY METHOD 01/09/2025 1:43 PM EDT [facility] Blood Venous blood specimen / Unknown Venipuncture / Unknown 01/09/2025 8:53 AM EDT 01/09/2025 8:53 AM EDT us Dionna JOHNSTON LAB BLOOD ORDERABLES Final Resu lt [facility] [address] [place] [address], [place] [phone] * ECG 12 lead (01/09/2025 8:45 AM EDT) Impressions Josette Maria MA - 01/09/2025 8:45 AM EDT Sinus rhythm with rate of 73 bpm and LVH by voltage. No STEMI Narrative Josette Maria MT - 01/09/2025 8:45 AM EDT Reason: chest pressure x 1 month and palpiations us Dionna JOHNSTON ECG ORDERABLES Final Result * SCREENING MAMMOGRAPHY BI 2-VIEW BREAST [...] interpreted with the aid of computer-aided detection. Comparison is made with 07/07/2022 and 07/02/2021. Breast parenchyma is composed of scattered fibroglandular densities. No new suspicious mass, architectural distortion, or suspicious calcifications. Impression: No mammographic evidence of malignancy. BI-RADS 1 - negative Procedure Note Flower, Gisselle, MD - 01/24/2024 This is a summary [...] mg/dL Blood Venous blood specimen / Unknown Result [facility] Provider LAB BLOOD ORDERABLES Katia l Result * Colonoscopy (04/23/2022) Pathologist [facility] Colonoscopy No interpretation , abstracted Anatomical Region Laterality Modality Other [facility] Provider HEALTH MAINTENANCE Final Result * Hepatitis C Screening (05/03/2020) Pathologist [facility] Hepatitis C Screening abstracted Historical Provider HEALTH MAINTENANCE Final Result from Last 3 Months or Most Recently Relevant to Health Maintenance Insurance * Guarantor: Sally Erazo Account Type Relation to Patient Date of Phone Billing Address Personal/Family Self 1970 [phone] (Work) [address] [place] [address] [employer] [facility] Care Teams Pad Tufter Relationship Specialty Start Date End Date Haley Ortega MD [address] [place] [phone] PCP - General Internal Medicine 12/15/21
--- OUTSIDE RECORDS SUMMARY | 2025-02-06 16:41 | XMS_ITS ---
Author Name [facility] Organization Unknown Care Team Organization Name Specialty Phone Email Start Date End Da daphnie [facility] Bora Schumacher Primary Care 04/14/2022 01/24/2024
[2025-02-06 18:01] LABS: Alanine Aminotransferase 40 U/L (0-31); Albumin Level 4.4 g/dL (3.5-5.0); Alkaline Phosphatase 102 U/L (39-117); Anion Gap 14 (12-20); Aspartate Amino Transferase 27 U/L (5-31); Blood Urea Nitrogen 16 mg/dL (9-16); Calcium 9.3 mg/dL (8.4-10.2); Carbon Dioxide 25 mmol/L (22-29); Chloride 107 mmol/L (96-108); Estimated Glomerular Filt Rate > 60; Potassium 3.8 mmol/L (3.3-5.1); Sodium 142 mmol/L (135-145); Total Protein 8.1 g/dL (6.5-8.0)
== END 2025-02-06 15:49 | disposition home or self-care (01) ==
LOC: HO.LAB 15:48
PROVIDERS: PCP Physician Assistant; Visit Provider Student in an Organized Health Care Education/Training Program
DX: M05.9 Rheumatoid arthritis with rheumatoid factor, unspecified (principal); E55.9 Vitamin D deficiency, unspecified
CPT/HCPCS: 36415; 80053; 82306; 85025; 85652; 86140

== ENCOUNTER 2025-02-08 07:37 | Outpatient (AMB) | payer OTHER, SELFPAY ==
--- NOTE | 2025-02-08 07:40 | A.OFFVIS_ITS ---
Vital Signs 02/08/25 07:48 Height 5 ft 6 in Weight 228 lb 6.382 oz BMI 36.9 BP 150/100 H Blood Pressure Location Lt brachial Position Sitting Pulse 82 Pulse Source Pulse Oximeter Pulse Oximetry (%) 98 Oxygen Delivery Method Room Air Intake Visit Reasons: f/u RA Intake Note: Patient presents for RA follow up. Allergies No Known Allergies Allergy (Verified 02/08/25 07:47) HPI Comments Details: Patient is a 55-year-old female with asthma, hypertension, GERD and seropositive rheumatoid arthritis here today for follow up Interval History: Patient last seen 10/12/24 with me - On Humira 40mg SC every 2 weeks, Methotrexate 15mg weekly, Folic acid 1 mg daily - Intermittent flare-ups and morning stiffness especially after a long day of work - No active synovitis on exam, joint pain attributed to degenerative joint disease and conservative measures recommended Today - On Humira 40mg SC every 2 weeks, Methotrexate 15mg weekly, Folic acid 1 mg daily - Doing well overall - Still with intermittent joint pain/aches - Had an episode of left knee swelling, went to the ER at [facility] and had a dry tap. Went to 4 sessions of PT and had improvement Rheumatologic History: Onset 03/18: ++ RF, ++TRINO anti DNA negative. Methotrexate started 08/17; Enbrel added late October Enbrel losing effectiveness stopped 2021; Humira started 2022 The patient presents for evaluation of her rheumatoid arthritis. I had last seen her at [place] in March. At that point she was on you Humira 40 mg every 2 weeks, folic acid 1 mg daily, and methotrexate 20 mg weekly. For the most part in the past when she was able to take her medicine the joints did much better. She does supplement the her medicines with ibuprofen 600 mg t.i.d. However she had some problems this year. In June she developed COVID so had to hold the Humira and methotrexate, perhaps for about 2 weeks. There was a bit if it more increased pain in July and August but that improved in September when she got back on the medications but she ran out of the Humira at the end of September. Also in mid October she developed abdominal pain and was found to have a ruptured appendix. This required laparoscopic surgery. She did well with that. She also hgad run out of her Humira in September. She was unable to get refills through her primary care team. Areas of pain today include the MCPs, PIP joints, neck, and shoulders. She apparently mostly had fatigue and arthralgias with the COVID and minimal respiratory symptoms. She had been previously vaccinated. Current Rheumatology Medication(s): Humira 40mg SC every 2 weeks Methotrexate 10mg PO weekly Folic 1mg PO PFSH Medical History Hypertension Fatigue Vitamin D deficiency Long-term use of immunosuppressant medication History of COVID-19 Hypertension Thyroid nodule Malignant neoplasm cervix Obstructive sleep apnea Seropositive rheumatoid arthritis Surgical History History of laparoscopic appendectomy Family History Mother Rheumatoid arthritis Social History Household Members: Significant Other Housing: House Are you a primary child caregiver to a significant other at home: No Do you presently have visiting nurse or other home services: No 75 years or older and lives alone: No Alcohol intake: current Alcohol intake frequency: holidays/special occasions only Alcohol type: wine Patient Tobacco Use Status: Never used Tobacco e-Cigarette/Vaping Use: Never Used service: No Current occupational status: employed 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 [employer] Details: Review of Systems Constitutional: Denies fever, chills, weight loss ENT: Denies vision changes, eye pain or eye redness, dental caries, dry mouth GI: Denies nausea, vomiting, diarrhea, abdominal pain, change in BM Pulm: Denies SOB, ZULETA, hemoptysis, wheezing Cards: Denies chest pain, palpitations Skin: Denies Raynaud's, rash, nail changes, photosensitivity, DIET KITCHEN COOK: Denies headaches, weakness, paresthesias, recurrent falls MSK: as per HPI All other systems reviewed and are unremarkable except noted above Physical Exam Exam Exam: Vital signs reviewed Physical Examination CONSTITUITIONAL Patient alert and cooperative. Well appearing and in no apparent painful distress HEENT Conjunctiva and sclera clear. No lymphadenopathy. MSK Hands * Right Hand: Able to make a fist. No swelling or tenderness to palpation of the MCPs, PIPs or DIPs. Reducible ulnar deviation at the level of the MCPs. Squaring of the 1st CMC. Synovial hypertrophy noted to the 2nd, 3rd and 4th MCPs without bogginess or evidence of synovitis * Left Hand: Able to make a fist. No swelling or tenderness to palpation of the MCPs, PIPs or DIPs. Very mild ulnar deviation at the level of the MCPs. Squaring of the 1st CMC Wrists * Right Wrist: Full ROM to flexion and extension. No swelling or TTP * Left Wrist: Full ROM to flexion and extension. No swelling or TTP Elbows * Right Elbow: Full ROM. No swelling or TTP. No TTP of the medial epicondyle. No TTP of the lateral epicondyle * Left Elbow: Full ROM. No swelling or TTP. No TTP of the medial epicondyle. No TTP of the lateral epicondyle. Rheumatoid nodule palpated Shoulders * Right shoulder: Full ROM. No swelling noted. No TTP of the AC joint. No TTP of the subacromial bursa. No TTP of the posterior shoulder * Left shoulder: Full ROM. No swelling noted. No TTP of the AC joint. No TTP of the subacromial bursa. No TTP of the posterior shoulder Knees * Right knee: Full ROM. No swelling noted. No TTP of the knee joint line. No TTP of pes anserine bursa * Left knee: Full ROM. No swelling noted. No TTP of the knee joint line. No TTP of pes anserine bursa. * Crepitations felt bilaterally Ankles * Right ankle: Good ankle dorsiflexion and plantar flexion. No swelling. No TTP of the ankle joint * Left ankle: Good ankle dorsiflexion and plantar flexion. No swelling. No TTP of the ankle joint Feet * Right foot: Negative squeeze test * Left foot: Negative squeeze test Tender points? * No tenderness to palpation of the bilateral trapezius, supraspinatus, anterior costochondral junctions, bilateral suboccipital muscle insertions SKIN No rashes Vital Signs: Last Vital Signs Pulse 82 02/08/25 07:48 BP 150/100 H 02/08/25 07:48 Pulse Ox 98 02/08/25 07:48 Oxygen Delivery Method Room Air 02/08/25 07:48 BMI result Body Mass Index 36.9 Results Reviewed Results Reviewed: Laboratory Tests 10/10/24 02/06/25 08:35 16:17 WBC 5.7 RBC 4.57 Hgb 13.2 Hct 40.1 Plt Count 218 ESR 48 H 36 H Sodium 142 Potassium 3.8 Chloride 107 Carbon Dioxide 25 BUN 16 Creatinine 0.61 AST 27 ALT 40 H C-Reactive Protein 0.70 H 0.50 25-OH Vitamin D Total 24.4 L Immunology labs 06/06/24 09:35 Cycl Citrul Peptide IgG >250 H Infectious serologies 06/06/24 09:35 Hepatitis A IgM Ab Nonreactive Hep Bs Antigen Negative Hep Bs Antibody REACTIVE Hep B Core Total Ab Nonreactive Hepatitis C Ab (EIA) Nonreactive TB Test (T-Spot) Com Negative Assessment & Plan Assessment & Plan (1) Seropositive rheumatoid arthritis: Comment: Onset 03/18: ++ RF, ++TRINO anti DNA negative. Methotrexate started 08/17; Enbrel added late October Enbrel losing effectiveness stopped 2021; Humira started 2022 Code(s): M05.9 - Rheumatoid arthritis with rheumatoid factor, unspecified Category: Medical Plan: #RA Patient is a 55-year-old female with seropositive deforming nodular rheumatoid arthritis here today for follow up. Patient is currently in remission on current regimen. Her current joint complaints are likely secondary to degenerative joint disease. Elevated Transaminases, will stop methotrexate and monitor Plan - Humira 40mg SC every 2 weeks - Stop Mtx and folic acid - RTC 4 months - Labs before visit: CBC, CMP, ESR, CRP (2) Generalized osteoarthritis: Code(s): M15.9 - Polyosteoarthritis, unspecified Plan: #Polyarticular OA Patient with polyarticular osteoarthritis involving several joints including hands and knees. Discussed treatment recommendations for hands: Paraffin wax bath twice a day with diclofenac topical gel 4 times a day. 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) use of immunosuppressive biologic Plan: #Long-term Use of TNF Inhibitors: Humira Discussed with the patient the benefits and risks of TNF inhibitors for the management of the rheumatic condition Benefits include reduce pain, maintenance of remission and reduction of flares as well as progression of the disease Risks include injection sites/infusion reactions, serious infections (such as bacterial infections, opportunistic infections), malignancy, delaminating syndromes, autoimmune phenomena, CHF exacerbations, palmar plantar psoriasis and cytopenias Recommended rotating injection sites, and holding medication during and for up to 1 week after resolution of a febrile illness or open skin wound Plan I spent 30 minutes reviewing the record and labs, taking a history, examining the patient, discussing the treatment plan, ordering diagnostic work up and documenting in the medical record Coding Level of Care Code Est Pt Level 4 (34381) Complex EM visit Add On G2211 Diagnoses Seropositive rheumatoid arthritis M05.9 Generalized osteoarthritis M15.9 Encounter for monitoring of adalimumab therapy Z51.81; Z79.620
--- OUTSIDE RECORDS SUMMARY | 2025-02-08 07:40 | XMS_ITS | Clinical Summary ---
Author Organization [facility] [address] 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 90 tablet 1 07/25/2024 Active cholecalciferol (Vitamin D3) 50 mcg (2,000 unit) capsuleIndicati ons:vitamin D deficiency Take 1 capsule (2,000 Units total) by mouth 1 (one) time each day. 90 capsule 1 07/25/2024 Active omeprazole (PriLOSEC) [address] capsule TAKE 1 CAPSULE BY MOUTH DAILY 90 capsule 3 07/25/2024 Active ibuprofen (ADVIL,MOTRIN) 600 mg tablet Take 1 tablet (600 mg total) by mouth 1 (one) time each day if needed. 09/17/2023 Active methotrexate 2.5 mg tablet TAKE 4 TABLETS BY MOUTH EVERY WEEK Active adalimumab (HUMIRA) 40 mg/0.8 mL syringe Inject 0.8 mL (40 mg total) under the skin every 14 (fourteen) days. Active amLODIPine (NORVASC) 10 mg tablet Take 1 tablet (10 mg total) by mouth 1 (one) time each day. 90 tablet 01/09/2025 Active Active Problems Problem Noted Date Diagnosed Date Renal cyst, right 08/01/2021 Hypertension 04/16/2021 Obstructive sleep apnea 06/10/2020 Overview (05/08/2024): [facility] Home Sleep Apnea Test: Date 06/02/2020; [...] thyroid nodules 05/01/2020 Malignant neoplasm of cervix ([facility] V24, [facility]/ [facility] V28) 07/13/2017 Overview (05/08/2024): Positive [...] time each day. Seropositive rheumatoid arth ritis ([facility] V24, [facility] V28) 08/09/2012 Overview (05/08/2024): Onset 03/18: RF, [...] Description 01/29/2025 1:30 PM EDT Ancillary Procedure [facility] [address] [place] [address] Chest discomfort; Palpitations; Fatigue, unspecified type 01/09/2025 8:00 AM EDT Office Visit Adult [address] [phone] Dionna Gonzalez PA Chest discomfort (Primary Dx); [...] for your loved ones. For example, child nutrition manager or elderly care for an older adult? [...] 8:00 AM EDT Office Visit Adult Medicine [address] [phone] Haley Ortega MD [address] [place] [address] 10/02/2025 8:15 AM EDT Office Visit [address] [place] [address] Brittany Lora MD [address] [place] [phone] Health Maintenance Due Date Last Done Comments Hepatitis B Vaccines (1 of 3 - 19+ 3-dose series) 1990 Zoster Vaccines (1 of 2) 1990 Cervical Cancer Screening: HPV 02/05/1992 Pneumococcal Vaccine: 50+ Years (2 of 2 - PCV) 2021 07/13/2013, 04/11/2009 HIV Screening 05/16/2022 Influenza Vaccine (#1) 2025 , 03/11/2021, 03/17/2016, Additional history exists Breast Cancer [...] EDT Chest discomfort Palpitations Fatigue, unspecified type CBC WITH AUTO DIFFERENTIAL Routine 01/09/2025 8:53 [...] neoplasm of breast LIPID PANEL Routine 08/12/2022 HM COLONOSCOPY Routine 04/23/2022 HEPATITIS C SCREENING Routine 05/03/2020 from Last 3 Months or Most Recently Relevant to Health Maintenance Results * STRESS ECHOCARDIOGRAM EXERCISE (01/29/2025 2:17 PM EDT) Exercise/injec tion duration (min) 6 CV PACS STRESS Exercise/injec tion duration (sec) 1 CV PACS STRESS Peak SBP 140 mmHg CV PACS STRESS Peak DBP 88 mmHg CV PACS STRESS Peak HR 148 bpm CV PACS STRESS Baseline HR 83 bpm CV PACS STRESS Baseline SBP 110 mmHg CV PACS STRESS Baseline DBP 80 mmHg CV PACS STRESS Estimated workload 7.0 METS CV PACS STRESS Percent HR 89 % CV PACS STRESS Rate Pressure Product 20,720.0 mmHg*bpm CV PACS STRESS BSA 2.18 m2 CV PACS STRESS Target HR 142 bpm CV PACS STRESS Max HR Percent 88 % CV PA CS STRESS Anatomical Region Laterality Modality Ultrasound 01/29/2025 1:46 PM EDT 01/29/2025 1:46 PM EDT Narrative 02/07/2025 2:30 PM EDT Stress ECG was normal. Exercise stress test was performed. Exercise capacity was average. Normal blood pressure response. Normal resting left ventricular function with normal augmentation of contractility in all wall segments with exercise. Normal decrease in internal cavity dimensions. Normal stress echo. Left Ventricle Left ventricle cavity size is normal. Wall thickness is normal. Systolic function is normal with an ejection fraction of 55-60%. There are no regional LV wall motion abnormalities. Unable to assess diastolic function. Right Ventricle Right ventricle cavity appears normal. Appears grossly normal. Left Atrium Appears grossly normal. Right Atrium Appears normal. Mitral Valve Mitral valve structure is normal. There is no regurgitation or stenosis. Tricuspid Valve Tricuspid valve structure is normal. There is no regurgitation or stenosis. Aortic Valve Number of aortic valve cusps cannot be determined. There is no regurgitation or stenosis. Pulmonic Valve The pulmonic valve was not assessed. Pulmonic valve not assessed due to limited exam. Unable to assess pulmonic valve stenosis due to poor Doppler exam. Ascending Aorta The aorta was not well visualized. Pericardium Pericardium appears normal. Study Details Overall the study quality was [...] the stress ECG was negative for ischemia. Echo Post Stress Left ventricular cavity size decreased from baseline. Left ventricular systolic function improved from baseline. us Dionna JOHNSTON CV ECHO PROCEDURES Final Result * Thyroid stimulating hormone with reflex to free t4 and free t3 (01/09/2025 8:53 AM EDT) TSH 0.92 0.40 - 4.00 mcIU/mL LAB CHEMISTRY METHOD 01/09/2025 2:[address] [facility] Blood Venous blood specimen / Unknown Venipuncture / Unknown 01/09/2025 8:53 AM EDT 01/09/2025 8:53 AM EDT Dionna JOHNSTON LAB BLOOD ORDERABLES Final Resu lt [facility] [address] [place] [address], * (ABNORMAL) CBC auto differential (01/09/2025 8:53 AM EDT) [facility] WBC 4.5(L) 4.8 - 10.8 K/mcL LAB HEMETOLOGY METHOD 01/09/2025 10:07 AM [facility] RBC 4.40 3.80 - 4.80 M/mcL LAB HEMETOLOGY METHOD 01/09/2025 10:07 AM [facility] Hemoglobin 12.6 11.5 - 16.0 g/dL LAB HEMETOLOGY METHOD 01/09/2025 10:07 AM [facility] Hematocrit 38.1 35.0 - 47.0 % LAB HEMETOLOGY METHOD 01/09/2025 10:07 AM [facility] MCV 87.2 79.0 - 98.0 FL LAB HEMETOLOGY METHOD 01/09/2025 10:07 AM [facility] MCH 28.8 27.0 - 32.0 pcg LAB HEMETOLOGY METHOD 01/09/2025 10:07 AM [facility] MCHC 33.1 32.0 - 37.0 g/dL LAB HEMETOLOGY METHOD 01/09/2025 10:07 AM [facility] RDW 13.7 11.0 - 15.0 % LAB HEMETOLOGY METHOD 01/09/2025 10:07 AM [facility] Platelets 207 130 - 400 K/mcL LAB HEMETOLOGY METHOD 01/09/2025 10:07 AM [facility] MPV 10.7 7.0 - 11.0 FL LAB HEMETOLOGY METHOD 01/09/2025 10:07 AM [facility] NRBC 0.0 <1.0 % LAB HEMETOLOGY METHOD 01/09/2025 10:07 AM [facility] NRBC Absolute 0.00 <0.10 K/mcL LAB HEMETOLOGY METHOD 01/09/2025 10:07 AM [facility] Neutrophils Relative 53.3 % LAB HEMETOLOGY METHOD 01/09/2025 10:07 AM [facility] Lymphocytes Relative 33.2 % LAB HEMETOLOGY METHOD 01/09/2025 10:07 AM [facility] Monocytes Relative 10.0 % LAB HEMETOLOGY METHOD 01/09/2025 10:07 AM [facility] Eosinophils Relative 2.4 % LAB HEMETOLOGY METHOD 01/09/2025 10:07 AM [facility] Basophils Relative 0.7 % LAB HEMETOLOGY METHOD 01/09/2025 10:07 AM [facility] Immature Granulocytes Relative 0.4 % LAB HEMETOLOGY METHOD 01/09/2025 10:07 AM [facility] Neutrophils Absolute 2.41 1.50 - 7.00 K/mcL LAB HEMETOLOGY METHOD 01/09/2025 10:07 AM [facility] Lymphocytes Absolute 1.50 1.00 - 5.00 K/mcL LAB HEMETOLOGY METHOD 01/09/2025 10:07 AM [facility] Monocytes Absolute 0.45 0.20 - 1.00 K/mcL LAB HEMETOLOGY METHOD 01/09/2025 10:[address] [facility] Eosinophils Absolute 0.11 0.00 - 0.50 K/[facility] LAB HEMETOLOGY METHOD 01/09/2025 10:[address] [facility] Basophils Absolute 0.03 0.00 - 0.20 K/[facility] LAB HEMETOLOGY METHOD 01/09/2025 10:[address] [facility] Immature Granulocytes Absolute 0.02 0.00 - 0.03 K/[facility] LAB HEMETOLOGY METHOD 01/09/2025 10:[address] [facility] Blood Venous blood specimen / Unknown Venipuncture / Unknown 01/09/2025 8:53 AM EDT 01/09/2025 8:53 AM EDT us Dionna JOHNSTON LAB BLOOD ORDERABLES Final Resu lt Performing Organization Address City/[facility] [address]/ZIP Co de Phone Number [facility] [address] [place] [address], [place] [phone] * Iron and TIBC (01/09/2025 8:53 AM EDT) Iron 49 40 - 150 mcg/dL LAB CHEMISTRY METHOD 01/09/2025 1:[address] [facility] TIBC 320 250 - 450 mcg/dL LAB CHEMISTRY METHOD 01/09/2025 1:[address] [facility] Iron Saturation 15 15 - 50 % LAB CHEMISTRY METHOD 01/09/2025 1:[address] [facility] Blood Venous blood specimen / Unknown Venipuncture / Unknown 01/09/2025 8:53 AM EDT 01/09/2025 8:53 AM EDT us Dionna JOHNSTON LAB BLOOD ORDERABLES Final Resu lt [facility] [address] [place] [address], * Vitamin D 25 hydroxy (01/09/2025 8:53 AM EDT) Vit D, 25-Hydroxy 41.1 30.0 - 80.0 ng/mL LAB CHEMISTRY METHOD 01/09/2025 2:[address] [facility] Blood Venous blood specimen / Unknown Venipuncture / Unknown 01/09/2025 8:53 AM EDT 01/09/2025 8:53 AM EDT Dionna JOHNSTON LAB BLOOD ORDERABLES Final Resu lt Performing Organization Address [facility] [address]/ZIP Co de Phone Number [facility] [address] [place] [address], * (ABNORMAL) Folate (01/09/2025 8:53 AM EDT) [facility] Folate >20.0(H) 2.8 - 17.0 ng/ml LAB CHEMISTRY METHOD 01/09/2025 1:[address] [facility] Blood Venous blood specimen / Unknown Venipuncture / Unknown 01/09/2025 8:53 AM EDT 01/09/2025 8:53 AM EDT Dionna JOHNSTON LAB BLOOD ORDERABLES Final Resu lt [facility] [address] [place] [address], [place] [phone] * Ferritin (01/09/2025 8:53 AM EDT) Pathologist [facility] Ferritin 72 8 - 252 ng/mL LAB CHEMISTRY METHOD 01/09/2025 1:[address] [facility] Blood Venous blood specimen / Unknown Venipuncture / Unknown 01/09/2025 8:53 AM EDT 01/09/2025 8:53 AM EDT Dionna JOHNSTON LAB BLOOD ORDERABLES Final Resu lt Performing Organization Address [facility] [address]/ZIP Co de Phone Number [facility] [address] [place] [address], [place] [phone] * Vitamin B12 (01/09/2025 8:53 AM EDT) [facility] Vitamin B-12 352 250 - 900 pcg/mL LAB CHEMISTRY METHOD 01/09/2025 1:[address] [facility] Blood Venous blood specimen / Unknown Venipuncture / Unknown 01/09/2025 8:53 AM EDT 01/09/2025 8:53 AM EDT Dionna JOHNSTON LAB BLOOD ORDERABLES Final Resu lt Performing Organization Address City/[facility] [address]/ZIP Co de Phone Number [facility] [address] [place] [address], [place] [phone] * (ABNORMAL) Comprehensive metabolic panel (01/09/2025 8:53 AM EDT) [facility] Sodium 140 133 - 145 mmol/L LAB CHEMISTRY METHOD 01/09/2025 1:[address] [facility] Potassium 3.9 3.5 - 5.5 mmol/L LAB CHEMISTRY METHOD 01/09/2025 1:[address] [facility] Chloride 109 96 - 110 mmol/L LAB CHEMISTRY METHOD 01/09/2025 1:[address] [facility] CO2 24 21 - 32 mmol/L LAB CHEMISTRY METHOD 01/09/2025 1:[address] [facility] Anion Gap 7 3 - 11 LAB CHEMISTRY METHOD 01/09/2025 1:[address] [facility] Glucose 91 70 - 100 mg/dL LAB CHEMISTRY METHOD 01/09/2025 1:43 PM [facility] BUN 14 5 - 25 mg/dL LAB CHEMISTRY METHOD 01/09/2025 1:43 PM [facility] Creatinine 0.60 0.50 - 1.10 mg/dL LAB CHEMISTRY METHOD 01/09/2025 1:43 PM [facility] eGFR 107 >=60 mL/min/1. 73m2 LAB CHEMISTRY METHOD 01/09/2025 1:43 PM [facility] Comment:Calculation based on the Chronic Kidney Disease Epidemiology Collaboration (CKD-EPI) equation refit without adjustment for race. BUN/Creatinine Ratio 23.3 LAB CHEMISTRY METHOD 01/09/2025 1:43 PM [facility] Calcium 9.3 8.5 - 10.5 mg/dL LAB CHEMISTRY METHOD 01/09/2025 1:43 PM [facility] AST (SGOT) 6(L) 10 - 42 unit/L LAB CHEMISTRY METHOD 01/09/2025 1:43 PM [facility] ALT (SGPT) 37 10 - 60 unit/L LAB CHEMISTRY METHOD 01/09/2025 1:43 PM [facility] Alkaline Phosphatase 106 42 - 121 unit/L LAB CHEMISTRY METHOD 01/09/2025 1:43 PM [facility] Total Protein 7.2 6.0 - 8.0 g/dL LAB CHEMISTRY METHOD 01/09/2025 1:43 PM [facility] Albumin 3.5 3.2 - 5.0 g/dL LAB CHEMISTRY METHOD 01/09/2025 1:43 PM [facility] Total Bilirubin 0.4 0.0 - 1.4 mg/dL LAB CHEMISTRY METHOD 01/09/2025 1:43 PM [facility] Blood Venous blood specimen / Unknown Venipuncture / Unknown 01/09/2025 8:53 AM EDT 01/09/2025 8:53 AM EDT us Dionna JOHNSTON LAB BLOOD ORDERABLES Final Resu lt JOSH GAMEZ [place] ([facility]) [facility] [address] [facility] [place] [address], [place] [phone] * ECG 12 lead (01/09/2025 8:45 AM EDT) Impressions Josette Maria MA - 01/09/2025 8:45 AM EDT Sinus rhythm with rate of 73 bpm and LVH by voltage. No STEMI Narrative Josette Maria MA - 01/09/2025 8:45 AM EDT Reason: chest [...] evidence of malignancy. BI-RADS 1 - negative Result [facility] Dionna JOHNSTON IMG XR PROCEDURES Final Result * (ABNORMAL) Lipid panel (08/12/2022) LDL/HDL Ratio 3 0 - 4 Triglycerides 133 0 - 150 mg/dL Cholesterol 200 0 - 200 mg/dL HDL 63 >=40 mg/dL LDL Cholesterol 111(A) 0 - 100 mg/dL Blood Venous blood specimen / Unknown Result [facility] Historical Provider LAB BLOOD ORDERABLES Katia l Result * Colonoscopy (04/23/2022) Pathologist [facility] Colonoscopy No interpretation , abstracted Anatomical Region Laterality Modality Other Result [facility] Historical Provider HEALTH MAINTENANCE Final Result * Hepatitis C Screening (05/03/2020) Hepatitis C Screening abstracted Historical Provider HEALTH MAINTENANCE Final Result from Last 3 Months or Most Recently Relevant to Health Maintenance Insurance * Guarantor: Sally Erazo Account Type Relation to Patient Date of Phone Billing Address Personal/Family Self 1970 [phone] (Work) [address] [place] [phone] [employer] [facility] 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
[2025-02-08 07:48] VITALS: BP 150/100; PULSE 82; O2SAT 98; BMI 36.9
== END 2025-02-08 08:08 | disposition home or self-care (01) ==
LOC: HO.RHES 07:38
PROVIDERS: PCP Physician Assistant; Visit Provider Student in an Organized Health Care Education/Training Program
DX: M05.9 Rheumatoid arthritis with rheumatoid factor, unspecified (principal); M15.9 Polyosteoarthritis, unspecified; Z51.81 Encounter for therapeutic drug level monitoring; Z79.620 Long term (current) use of immunosuppressive biologic
CPT/HCPCS: 99214